=== PATIENT | male | born 1945 | race Caucasian/White ===

== ENCOUNTER 2022-11-02 16:10 | Inpatient (IN) | payer BC ==
[~2022-11-02] VITALS: Ht 180.3 cm; Wt 87.1 kg
--- NOTE | 2022-11-02 16:38 | NUR ---
ESTABLISHED IV ON LEFT AC 18G.
--- NOTE | 2022-11-02 16:39 | NUR ---
BLOOD DRAWN, SWAB FOR COVID19 AND RAPID INFLUENZA SENT TO LAB
[2022-11-02 16:51] LABS: BASOPHILS % (AUTO) 0.1 % (0.0-2.0); EOSINOPHILS % (AUTO) 0.5 % (0.0-6.0); HEMATOCRIT 33 % (39-51); HEMOGLOBIN 9.5 g/dL (13.5-17.5); LYMPHOCYTES # (AUTO) 0.7 K/uL (0.8-4.8); LYMPHOCYTES % (AUTO) 5.5 % (20.0-44.0); MEAN CORPUSCULAR HGB CONC 29 g/dl (31.0-36.0); MEAN CORPUSCULAR VOLUME 63 fL (80-96); MONOCYTES # (AUTO) 1.4 K/uL (0.1-1.30); MONOCYTES % (AUTO) 10.8 % (2.0-12.0); NEUTROPHILS # (AUTO) 10.9 K/uL (1.8-8.9); NEUTROPHILS % (AUTO) 83.1 % (43.0-81.0); PLATELET COUNT (AUTO) 342 K/uL (150-450); RED BLOOD CELL COUNT(AUTO) 5.26 MIL/uL (4.5-6.0); WHITE BLOOD COUNT (AUTO) 13.2 K/uL (4.3-11.0)
[2022-11-02 17:21] LABS: ALANINE AMINOTRANSFERASE 32 U/L (12-78); ALKALINE PHOSPHATASE 110 U/L (46-116); ASPARTATE AMINOTRANSFERASE 18 U/L (15-37); BILIRUBIN,DIRECT 0.1 mg/dL (0.0-0.2); BILIRUBIN,TOTAL 0.4 mg/dL (0.2-1.0); CALCIUM, SERUM 8.3 mg/dL (8.5-10.1); CARBON DIOXIDE 32 mmol/L (21-32); CHLORIDE 104 mmol/L (98-107); CREATININE 0.7 mg/dL (0.6-1.3); GLUCOSE 139 mg/dL (74-106); POTASSIUM 4.6 mmol/L (3.5-5.1); SODIUM SERUM 142 mmol/L (136-145); TOTAL PROTEIN, SERUM 7.5 g/dL (6.4-8.2); UREA NITROGEN, BLOOD 25 mg/dL (7-18)
[2022-11-02] MEDS ORDERED: FUROSEMIDE 40 MG/4 ML VIAL IV ONE (18:00)
[2022-11-02] MEDS ORDERED: ALBU6.7H9 IH (18:19)
[2022-11-02] MEDS ORDERED: FURO40TA5 PO ×2 (18:19→19:46)
[2022-11-02] MEDS ORDERED: LISI20TA30 PO (18:19)
[2022-11-02] MEDS ORDERED: ATOR40TA PO (18:19)
[2022-11-02] MEDS ORDERED: AMLO-212 PO (18:19)
[2022-11-02] MEDS ORDERED: CIPR5DRO18 LEFTEYE (18:19)
[2022-11-02] MEDS ORDERED: ASPI-1420 PO (18:19)
[2022-11-02] MEDS ORDERED: CLOP75TA15 PO (18:19)
[2022-11-02] MEDS ORDERED: TAMS-12 PO (18:19)
--- NOTE | 2022-11-02 19:07 | NUR ---
[facility] CALLED CUSTOMER ORDER CLERK PAGED.
[2022-11-02 20:19] LABS: LYMPHOCYTES % (MANUAL) 6 % (16-48); MONOCYTES % (MANUAL) 9 % (0-11.0); NEUTROPHILS % (MANUAL) 85 (42-76)
--- NOTE | 2022-11-02 21:10 | NUR ---
REPORT GIVEN TO BENY RN ROOM 109 FOR MONTY
[2022-11-02] MEDS ORDERED: ALBUTEROL FS 2.5 MG/3 ML VIAL.NEB IH PRN (22:00)
[2022-11-02] MEDS ORDERED: ENOXAPARIN SODIUM 40 MG/0.4 ML DISP.SYRIN SQ SCH (22:00)
--- NOTE | 2022-11-02 22:00 | NUR ---
petroleum refinery laborer notes Received Pt from ER nurse RAYMOND Wilburn. Pt arrived at the unit with a gurney and ACLS protocol. Pt is alert and orientedX3 and looks lethargic. On 15 L nonrebreather with O2 sat is 94%. No SOB. No S/S of distress noted. IV site at LAC# 18 is clean, intact and flushes well. Tele monitor showed SR. Pt's belonging was checked with RN and INVESTMENT BROKERSatish Maddox. Pt refuses to have wallet check. Explained risks and benefits. Skin assesment is done and performed. Skin issues pictures taken. Reorient Pt to the room and the use of call light. Pt verbalize understanding. Safety precautions is maintianed. Bed at low position, brakes locked, side rails upX3, hob elevated, bed alarm is on and call light is within reach. Will continue to monitor.
[2022-11-02 22:10] VITALS: BP 155/94
[2022-11-02] MEDS ORDERED: CEFTRIAXONE 1 G VIAL ONE (22:14)
[2022-11-02] MEDS: CIPROFLOXACIN HCL 0.3% 5 ML BOTTLE LEFTEYE SCH (22:26)
--- NOTE | 2022-11-02 22:27 | NUR ---
RN notes Unable to administered ciproflaxacin eyedrop. meds is not available in the unit. charge nurse is aware and informed.
[2022-11-02] MEDS: CEFTRIAXONE 1 G in IV D5W 50 ML IV SCH (22:33)
[2022-11-02] MEDS: TAMSULOSIN 0.4 MG CAP.SR.24H PO SCH (22:35)
[2022-11-02] MEDS: ATORVASTATIN 40 MG TABLET PO SCH (22:35)
[2022-11-03] VITALS (22 sets, daily range): BP systolic 82–144; BP diastolic 50–90
--- NOTE | 2022-11-03 00:45 | NUR ---
RN notes Dr. Agarwal at the bedside. MD ordered lasix 40 mg/iv/one time. Order carry out.
[2022-11-03] MEDS ORDERED: FUROSEMIDE 40 MG/4 ML VIAL IV ONE (01:00)
--- NOTE | 2022-11-03 02:30 | NUR ---
RN notes Dr. Agarwal at the bedside. ordered for noble cath and ABG stat. Order carry out.
[2022-11-03 03:10] LABS: ABG BASE EXCESS 5.6 mmol/L; ABG OXYGEN SATURATION 90.9 % (92.0-98.5); ABG PCO2 89.7 mmHg (35.0-45.0); AaDO2 552.3 mmHg; MetHb 0.2 % (0.0-1.5); O2Hb 89.8 % (94.0-97.0); SITE, ABG Left Radial; VENT MODE, BG NON REBREATHER
[2022-11-03] MEDS: FUROSEMIDE 40 MG/4 ML VIAL IV SCH ×4 (03:15→17:30)
--- NOTE | 2022-11-03 03:21 | NUR ---
RN notes Informed and notify Dr. Agarwal regarding pt's ABG. MD ordered for Bipap and transfer Pt to ICU. Order carry out. Charge nurse is aware and informed.
--- NOTE | 2022-11-03 03:34 | NUR ---
RN notes Called and spoke with Dr. Agarwal regarding lasix due at 0300. MD ordered not to give lasix at the time. Patient just received lasix at 0100. Charge nurse is aware and informed.
--- NOTE | 2022-11-03 03:36 | NUR ---
RN notes Transferred Pt to room 255 per MD ordered.
--- NOTE | 2022-11-03 03:40 | NUR ---
RN closing notes Transferred Pt with ACLS protocol to room 255. Report given to RAYMOND Pugh.
--- NOTE | 2022-11-03 04:00 | NUR ---
Received patient transferred in from [facility] via bed per [facility] protocol.Patient lethargic oriented x1. Bipap applied by Tristen,RT settings 20/5,Rate 16,FIO2 60% saturation 90%-95%.No acute distress noted.Dx:CHF Exacerbation,Respiratory Failure.SR.Afebrile.Saline to LAC intact.FC to gravity with clear yellow urine.AM care done.Turned and repositioned.Safety measures implemented.Continue monitoring.
[2022-11-03 05:33] LABS: BASOPHILS % (AUTO) 0.3 % (0.0-2.0); EOSINOPHILS % (AUTO) 0.1 % (0.0-6.0); HEMATOCRIT 36 % (39-51); HEMOGLOBIN 10.1 g/dL (13.5-17.5); LYMPHOCYTES # (AUTO) 0.4 K/uL (0.8-4.8); LYMPHOCYTES % (AUTO) 2.8 % (20.0-44.0); MEAN CORPUSCULAR HGB CONC 28 g/dl (31.0-36.0); MEAN CORPUSCULAR VOLUME 63 fL (80-96); MONOCYTES # (AUTO) 1.1 K/uL (0.1-1.30); MONOCYTES % (AUTO) 7.2 % (2.0-12.0); NEUTROPHILS % (AUTO) 89.6 % (43.0-81.0); PLATELET COUNT (AUTO) 344 K/uL (150-450); RED BLOOD CELL COUNT(AUTO) 5.66 MIL/uL (4.5-6.0); WHITE BLOOD COUNT (AUTO) 15.6 K/uL (4.3-11.0)
[2022-11-03 05:40] LABS: ABG BASE EXCESS 9.6 mmol/L; ABG OXYGEN SATURATION 93.9 % (92.0-98.5); ABG PCO2 73.4 mmHg (35.0-45.0); ABG PH 7.331 (7.350-7.450); ABG PO2 74.9 mmHg (75.0-100.0); AaDO2 272.2 mmHg; COHb 1.2 % (0.5-1.5); MetHb 0.2 % (0.0-1.5); O2Hb 92.6 % (94.0-97.0); SITE, ABG Left Radial; VENT MODE, BG ST 20/5 20 60%
[2022-11-03 05:51] LABS: ALBUMIN 2.7 g/dL (3.4-5.0); BILIRUBIN,TOTAL 0.4 mg/dL (0.2-1.0); CALCIUM, SERUM 8.1 mg/dL (8.5-10.1); CREATININE 0.8 mg/dL (0.6-1.3); MAGNESIUM 2.1 mg/dL (1.8-2.4); PHOSPHORUS 4.6 mg/dL (2.5-4.9); POTASSIUM 4.5 mmol/L (3.5-5.1); THYROID STIMULATING HORMONE 0.45 uIU/mL (0.358-3.74); TOTAL PROTEIN, SERUM 7.1 g/dL (6.4-8.2)
[2022-11-03 06:15] LABS: BILIRUBIN,URINE NEGATIVE (NEGATIVE); COLOR,URINE YELLOW (YELLOW); LEUKOCYTE ESTERASE ,URINE NEGATIVE (NEGATIVE); NITRITE, URINE NEGATIVE (NEGATIVE); PROTEIN,URINE NEGATIVE (NEGATIVE); UGLUCOSE NEGATIVE (NEGATIVE); UROBILINOGEN,URINE 0.2 EU/dL (0.2)
[2022-11-03 06:16] LABS: BACTERIA,URINE None seen /HPF (None Seen); RBC,URINE 0-2 /HPF (0-2); SQUAMOUS EPITHELIAL CELL,UR Rare /HPF (None Seen); WBC,URINE 0-2 /HPF (0-3)
--- NOTE | 2022-11-03 06:30 | NUR ---
Patient resting.VSS.Remains on BIPAP.ABG'S this morning 0500 called to Alvin Agarwal NP with orders and carried out.Increased Rate to 18 done by RT Tristen.No acute distress noted.Kept comfortable.
--- NOTE | 2022-11-03 07:22 | NUR ---
WOUND CARE CONSULT: PT SEEN FOR SKIN ASSESSMENT AND NOTED TO HAVE DRY SCABS TO LEFT SIDE OF NECK AND SACRAL/LEFT BUTTOCK REDNESS WHICH IS BLANCHABLE. RECOMMENDATIONS MADE FOR SKIN PROTECTION. DISCUSSED WITH NURSING STAFF. MD IN AGREEMENT WITH PLAN OF CARE. SILVERMAN CATH NOTED.
[2022-11-03] MEDS ORDERED: Z GUARD REMEDY 4 OZ OINT TP PRN (07:30)
--- NOTE | 2022-11-03 08:39 | NUR ---
RN NOTE PER DR BLACKWOOD. PT WILL BE NPO DUE TO TAP TOMORROW. ALL PO MEDICATIONS HELD.
[2022-11-03] MEDS: ASPIRIN EC 81 MG TABLET.DR PO SCH (08:41)
[2022-11-03] MEDS: AMLODIPINE BESYLATE 5 MG TABLET PO SCH (08:41)
[2022-11-03] MEDS: LISINOPRIL (20MG) 20 MG TABLET PO SCH ×2 (08:42→17:00)
[2022-11-03] MEDS: CLOPIDOGREL BISULFATE 75 MG TABLET PO SCH (08:42)
[2022-11-03] MEDS: CIPROFLOXACIN HCL 0.3% 5 ML BOTTLE LEFTEYE SCH (08:49)
[2022-11-03] MEDS ORDERED: FUROSEMIDE 40 MG TABLET PO SCH (09:00)
[2022-11-03] MEDS ORDERED: FUROSEMIDE 40 MG/4 ML VIAL IV SCH (09:00)
[2022-11-03] MEDS: IPRATROPIUM NEB FS 0.5 MG/2.5 ML AMPUL.NEB NEB SCH ×3 (10:00→20:34)
[2022-11-03] MEDS: ALBUTEROL FS 2.5 MG/3 ML VIAL.NEB IH SCH ×3 (10:00→20:34)
[2022-11-03 10:40] LABS: IRON, SERUM 14 ug/dl (50-175); TOTAL IRON BINDING CAPACITY 253 ug/dl (250-450)
--- NOTE | 2022-11-03 11:07 | NUR ---
RN NOTE PATIENT SIGNED CONSENT FOR ULTRASOUND GUIDED THORACENTESIS OF THE RIGHT LUNG, PLACED IN CHART.
[2022-11-03 11:14] LABS: FERRITIN 14 ng/mL (8-388)
[2022-11-03] MEDS: methylPREDNISolone SOD SUCC 125 MG/2ML VIAL IV SCH ×3 (12:42→21:24)
--- NOTE | 2022-11-03 17:23 | NUR ---
RT PATIENT REMAINS ON BIPAP WITH ORDERED SETTINGS. PATIENT AWAKE, RESPONSIVE, NO DISTRESS ON BIPAP. WHEN BIPAP REMOVED PATIENT DECOMPENSATES RAPIDLY AND BECOMES SOB. AMBU BAG AT HOB
[2022-11-03] MEDS: OFLOXACIN 0.3% OPHTH 5 ML BOTTLE LEFTEYE SCH ×2 (17:30→21:23)
--- NOTE | 2022-11-03 19:15 | NUR ---
RN OPENING NOTES RECEIVED PATIENT ON BED, AWAKE, ALERT/ORIENTED 3, ON BIPAP WITH SETTINS 20/50 AC- 18, FIO2- 60% SATING AT 95%, RESPIRATORY EVEN AND UNLABORED, AFEBRILE, NO S/S OF DISTRESS NOTED. NOTED WITH LAC #18 PERIPHERAL LINE. FLUSHED WITH NS. SILVERMAN CATHETER PATENT INTACT DRAINING WITH CLEAR YELLOW URINE VIA GRAVITY. ALL SAFETY PRECAUTION PROVIDED. BED IN LOWEST POSITION, LOCKED. CALL LIGHT WITH IN REACH.
--- NOTE | 2022-11-03 20:34 | NUR ---
RCVD PT ON BIPAP 20/5, RR 18, FIO2 60%. Q6 BREATHING TX GIVEN, NO ADVERSE REACTION NOTED. WILL CONTINUE TO MONITOR T/O SHIFT.
[2022-11-03] MEDS: CEFTRIAXONE 1 G in IV D5W 50 ML IV SCH (22:55)
[2022-11-03] MEDS: ATORVASTATIN 40 MG TABLET PO SCH (22:55)
[2022-11-03] MEDS: TAMSULOSIN 0.4 MG CAP.SR.24H PO SCH (22:55)
[2022-11-04] VITALS (24 sets, daily range): BP systolic 85–138; BP diastolic 58–82
[2022-11-04] MEDS: IPRATROPIUM NEB FS 0.5 MG/2.5 ML AMPUL.NEB NEB SCH ×4 (01:31→19:50)
[2022-11-04] MEDS: ALBUTEROL FS 2.5 MG/3 ML VIAL.NEB IH SCH ×4 (01:32→19:50)
[2022-11-04] MEDS: methylPREDNISolone SOD SUCC 125 MG/2ML VIAL IV SCH ×3 (04:33→20:59)
[2022-11-04 04:59] LABS: BAND % (MANUAL) 1 % (0.0-5.0); BASOPHILS % (MANUAL) 0 % (0.0-2.0); EOSINOPHILS % (MANUAL) 1 % (0-4); LYMPHOCYTES % (MANUAL) 6 % (16-48); MONOCYTES % (MANUAL) 10 % (0-11.0); NEUTROPHILS % (MANUAL) 82 (42-76)
--- NOTE | 2022-11-04 07:10 | NUR ---
TRAIN OPERATIONS MANAGER NOTE RECEIVED PATIENT IN BED RESTING ALERT ORIENTED X3 VERBALLY RESPONSIVE,ON BIPAP PRESCRIBED O2:90% IV SITE IS ON RAC INTACT PATENT,SILVERMAN CATH IN PLACE URINE DRAINING YELLOW BY GRAVITY SAFETY MEASURE IMPLEMENT BED IN LOW POSITION AND LOCKED,CALL LIGHT WITHIN REACH,HEAD OF BED ELEVATED CONTINUE TO MONITOR.
[2022-11-04 08:15] LABS: ABG BASE EXCESS 12.6 mmol/L; ABG OXYGEN SATURATION 93.4 % (92.0-98.5); ABG PH 7.466 (7.350-7.450); ABG PO2 67.6 mmHg (75.0-100.0); AaDO2 300.8 mmHg; COHb 1.1 % (0.5-1.5); MetHb 0.1 % (0.0-1.5); O2Hb 92.3 % (94.0-97.0); SITE, ABG Right Radial; VENT MODE, BG BIPAP 20/5 R18 60%
[2022-11-04 08:41] LABS: BASOPHILS # (AUTO) 0.3 K/uL (0.0-0.2); BASOPHILS % (AUTO) 1.6 % (0.0-2.0); EOSINOPHILS % (AUTO) 0.1 % (0.0-6.0); HEMATOCRIT 34 % (39-51); HEMOGLOBIN 9.6 g/dL (13.5-17.5); LYMPHOCYTES # (AUTO) 0.3 K/uL (0.8-4.8); LYMPHOCYTES % (AUTO) 1.6 % (20.0-44.0); MEAN CORPUSCULAR HGB CONC 29 g/dl (31.0-36.0); MEAN CORPUSCULAR VOLUME 62 fL (80-96); MONOCYTES # (AUTO) 0.6 K/uL (0.1-1.30); MONOCYTES % (AUTO) 2.9 % (2.0-12.0); NEUTROPHILS # (AUTO) 18.5 K/uL (1.8-8.9); NEUTROPHILS % (AUTO) 93.8 % (43.0-81.0); PLATELET COUNT (AUTO) 338 K/uL (150-450); RED BLOOD CELL COUNT(AUTO) 5.38 MIL/uL (4.5-6.0); WHITE BLOOD COUNT (AUTO) 19.8 K/uL (4.3-11.0)
[2022-11-04] MEDS: CLOPIDOGREL BISULFATE 75 MG TABLET PO SCH (09:00)
[2022-11-04] MEDS: ASPIRIN EC 81 MG TABLET.DR PO SCH (09:00)
[2022-11-04] MEDS: LISINOPRIL (20MG) 20 MG TABLET PO SCH ×2 (09:00→16:19)
--- NOTE | 2022-11-04 09:00 | NUR ---
RN NOTE CHANGE BIPAP TO SIMPLE MASK ON 10L OXYGEN MD ORDERED,CONTINUE TO MONITOR.
[2022-11-04] MEDS: FUROSEMIDE 40 MG/4 ML VIAL IV SCH ×3 (09:10→16:19)
[2022-11-04] MEDS: AMLODIPINE BESYLATE 5 MG TABLET PO SCH (09:11)
[2022-11-04] MEDS: OFLOXACIN 0.3% OPHTH 5 ML BOTTLE LEFTEYE SCH ×4 (09:12→21:01)
[2022-11-04 10:05] LABS: ALBUMIN 2.4 g/dL (3.4-5.0); BILIRUBIN,TOTAL 0.3 mg/dL (0.2-1.0); CALCIUM, SERUM 8.4 mg/dL (8.5-10.1); CREATININE 0.9 mg/dL (0.6-1.3); TOTAL PROTEIN, SERUM 6.8 g/dL (6.4-8.2)
[2022-11-04 10:17] LABS: ABG BASE EXCESS 6.6 mmol/L; ABG OXYGEN SATURATION 89.9 % (92.0-98.5); ABG PCO2 77.4 mmHg (35.0-45.0); ABG PH 7.281 (7.350-7.450); ABG PO2 70.5 mmHg (75.0-100.0); AaDO2 272.2 mmHg; MetHb 0.4 % (0.0-1.5); O2Hb 88.6 % (94.0-97.0); SITE, ABG Left Radial; VENT MODE, BG SIMPLE MASK
--- NOTE | 2022-11-04 10:30 | NUR ---
RN NOTE PATIENT FORM SIMPLE MASK 10L CHANGE TO BIPAP CONTINUE TO MONITOR.
[2022-11-04] MEDS: ENOXAPARIN SODIUM 40 MG/0.4 ML DISP.SYRIN SQ SCH (13:15)
[2022-11-04] MEDS: SOD FERRIC GLUC 125 MG in IV NS 0.9% 100 ML IV SCH (14:59)
--- NOTE | 2022-11-04 19:09 | NUR ---
RN NOTE PATIENT REMAINS ALERT ORIENTED X3 VERBALLY RESPONSIVE ON BIPAP MD ORDERED,NO SOB NOT ACUTE DISTRESS NOTED IV SITE IS ON LEFT AC INTACT PATENT,SILVERMAN CATH IN PLACE KEPT CLEAN AND DRY ALL THE TIME,TURNED AND REPOSITIONED EVERY 2 HOURS,HEAD OF THE BED ELEVATED ALL THE TIME,BED IN LOW POSITION AND LOCKED,CALL LIGHT WITHIN REACH,ENDORSE NEXT COMING SHIFT FOR CONTINUATION OF CARE.
--- NOTE | 2022-11-04 19:28 | NUR ---
RN OPENING NOTE PT A&OX4. RESPIRATIONS EVEN AND UNLABORED ON BIPAP WITH O2 SAT OF 94%. SKIN IS WARM AND DRY. IV INTACT LAC 18G. SR ON MONITOR. OTHER VS ARE STABLE. NO ACUTE SIGNS OF DISTRESS. BED LOCKED AND AT LOWEST LEVEL WITH HOB ELEVATED. 2 RAILS UP AND CALL LIGHT WITHIN REACH.
--- NOTE | 2022-11-04 20:42 | NUR ---
RECEIVED PT ON BIPAP. PT IS AWAKE AND TOLERATING SETTINGS. CONTINUE TO MONITOR. Addendum: 11/04/22 at 3 by ROYAL TOLBERT RT Amended: Links added.
[2022-11-04] MEDS: CEFTRIAXONE 1 G in IV D5W 50 ML IV SCH (21:00)
[2022-11-04] MEDS: ATORVASTATIN 40 MG TABLET PO SCH (21:00)
[2022-11-04] MEDS: TAMSULOSIN 0.4 MG CAP.SR.24H PO SCH (21:00)
[2022-11-05] VITALS (24 sets, daily range): BP systolic 104–141; BP diastolic 61–97
[2022-11-05] MEDS: IPRATROPIUM NEB FS 0.5 MG/2.5 ML AMPUL.NEB NEB SCH ×4 (01:18→19:33)
[2022-11-05] MEDS: ALBUTEROL FS 2.5 MG/3 ML VIAL.NEB IH SCH ×4 (01:18→19:33)
[2022-11-05 03:48] LABS: BASOPHILS # (AUTO) 0.1 K/uL (0.0-0.2); BASOPHILS % (AUTO) 0.6 % (0.0-2.0); HEMATOCRIT 32 % (39-51); HEMOGLOBIN 9.3 g/dL (13.5-17.5); LYMPHOCYTES # (AUTO) 0.3 K/uL (0.8-4.8); LYMPHOCYTES % (AUTO) 1.7 % (20.0-44.0); MEAN CORPUSCULAR HGB CONC 29 g/dl (31.0-36.0); MEAN CORPUSCULAR VOLUME 62 fL (80-96); MONOCYTES # (AUTO) 0.8 K/uL (0.1-1.30); MONOCYTES % (AUTO) 4.4 % (2.0-12.0); NEUTROPHILS # (AUTO) 17.7 K/uL (1.8-8.9); NEUTROPHILS % (AUTO) 93.3 % (43.0-81.0); PLATELET COUNT (AUTO) 324 K/uL (150-450); RED BLOOD CELL COUNT(AUTO) 5.22 MIL/uL (4.5-6.0)
[2022-11-05] MEDS: methylPREDNISolone SOD SUCC 125 MG/2ML VIAL IV SCH ×3 (04:15→21:46)
[2022-11-05 04:16] LABS: CALCIUM, SERUM 8.1 mg/dL (8.5-10.1); CREATININE 0.8 mg/dL (0.6-1.3); POTASSIUM 3.7 mmol/L (3.5-5.1)
[2022-11-05 04:22] LABS: ALBUMIN 2.4 g/dL (3.4-5.0); BILIRUBIN,TOTAL 0.4 mg/dL (0.2-1.0); TOTAL PROTEIN, SERUM 6.7 g/dL (6.4-8.2)
[2022-11-05 05:18] LABS: EOSINOPHILS % (MANUAL) 0 % (0-4); LYMPHOCYTES % (MANUAL) 1 % (16-48); MONOCYTES % (MANUAL) 4 % (0-11.0); NEUTROPHILS % (MANUAL) 95 (42-76)
[2022-11-05 06:01] LABS: ABG BASE EXCESS 11.8 mmol/L; ABG PCO2 53.4 mmHg (35.0-45.0); ABG PH 7.462 (7.350-7.450); AaDO2 440.3 mmHg; COHb 0.6 % (0.5-1.5); MetHb 0.1 % (0.0-1.5); O2Hb 93.3 % (94.0-97.0); SITE, ABG Right Radial
--- NOTE | 2022-11-05 06:55 | NUR ---
RN CLOSING NOTE PT A&OX4. PT ON BIPAP AND WAS INFORMED BY RT THAT THEY HAVE INCREASED FiO2 FROM 60% TO 80% DUE TO O2 SAT OF 89%. PT'S RESPIRATIONS ARE EVEN AND UNLABORED AND TOLERATING BIPAP WELL. DENIES CHEST PAIN OR DYSPNEA. SKIN IS WARM AND DRY. SPEECH CLEAR. LAC 18 G INTACT AND FLUSHED. SKIN IS WARM AND DRY. EDUCATED PT ON IMPORTANCE OF FLUID RESTRICTION DUE TO CHF DX. PT VERBALIZED UNDERSTANDING. SKIN LOCKED AND AT LOWEST LEVEL WITH 2 RAILS UP. CALL LIGHT WITHIN REEACH.
[2022-11-05] MEDS ORDERED: AZITHROMYCIN 500 MG in IV D5W 250 ML IV SCH (07:00)
--- NOTE | 2022-11-05 07:44 | NUR ---
PT IN BED RESTING ABLE TO MAKE NEEDS KNOWN, VERBALIZED HUNGER AND WANTS TO EAT. CURRENTLY ON RESCUE BIPAP 80% FIO2. BP STABLE BEDSIDE MONITOR READING SR. OVER NIGHT EP. OF DESAT HAD TO INCREASE FI02. CHEST CT SCHEDULED WHEN PT IS STABLE. HOB ELEVATED TO SEMI FOWLERS CALL LIGHT WITHIN REACH.
[2022-11-05] MEDS: LISINOPRIL (20MG) 20 MG TABLET PO SCH ×2 (08:15→16:55)
[2022-11-05] MEDS: FUROSEMIDE 40 MG/4 ML VIAL IV SCH ×3 (08:15→16:55)
[2022-11-05] MEDS: AMLODIPINE BESYLATE 5 MG TABLET PO SCH (08:15)
[2022-11-05] MEDS: CLOPIDOGREL BISULFATE 75 MG TABLET PO SCH (08:16)
[2022-11-05] MEDS: ASPIRIN EC 81 MG TABLET.DR PO SCH (08:16)
[2022-11-05] MEDS: OFLOXACIN 0.3% OPHTH 5 ML BOTTLE LEFTEYE SCH ×4 (08:16→21:47)
[2022-11-05] MEDS: ENOXAPARIN SODIUM 40 MG/0.4 ML DISP.SYRIN SQ SCH (08:19)
[2022-11-05] MEDS: AZITHROMYCIN 500 MG in IV D5W 250 ML IV SCH (08:24)
[2022-11-05] MEDS: SOD FERRIC GLUC 125 MG in IV NS 0.9% 100 ML IV SCH (15:07)
[2022-11-05] MEDS: ENSURE ENLIVE CHOC 237 ML CAN PO SCH ×2 (15:30→17:00)
--- NOTE | 2022-11-05 20:17 | NUR ---
RECEIVED PT AWAKE ON BIPAP. PT TOLERATING SETTINGS. NO DISTRESS. CONTINUE TO MONITOR. Addendum: 11/05/22 at 2018 by ROYAL TOLBERT RT Amended: Links added.
--- NOTE | 2022-11-05 20:25 | NUR ---
PRINTED CIRCUIT BOARD PANELS PLATER OPENING NOTE PT RECEIVED IN BED, AWAKE, A&O X3, CALM, COOPERATIVE. PT ON BIPAP WITH SETTINGS OF 20/5, RATE AT 18 AND FIO2 AT 80% WITH CURRENT O2SAT OF 92%; NO S/S OF RESP DISTRESS, NO COUGH, NON-LABORED AND EQUAL BREATHING; GETS SOB WITH EXERTION. PT ATTACHED TO BEDSIDE MONITOR, SR WITH HR OF 82. IV ACCESS ON RIGHT WRIST 18G NS TKO INFUSING. SILVERMAN INTACT AND PATENT DRAINING CLEAR AND YELLOW URINE. BED IN LOWEST POSITION, CALL LIGHT WITHIN REACH, SIDE RAILS UP X3. WILL CONTINUE TO MONITOR THROUGHOUT THE NIGHT.
[2022-11-05] MEDS: CEFTRIAXONE 1 G in IV D5W 50 ML IV SCH (21:45)
[2022-11-05] MEDS: TAMSULOSIN 0.4 MG CAP.SR.24H PO SCH (21:46)
[2022-11-05] MEDS: ATORVASTATIN 40 MG TABLET PO SCH (21:46)
[2022-11-06] VITALS (32 sets, daily range): BP systolic 68–151; BP diastolic 21–84
[2022-11-06] MEDS: ALBUTEROL FS 2.5 MG/3 ML VIAL.NEB IH SCH ×4 (01:10→19:28)
[2022-11-06] MEDS: IPRATROPIUM NEB FS 0.5 MG/2.5 ML AMPUL.NEB NEB SCH ×4 (01:10→19:28)
[2022-11-06] MEDS: methylPREDNISolone SOD SUCC 125 MG/2ML VIAL IV SCH ×3 (05:17→21:45)
[2022-11-06 05:22] LABS: ALBUMIN 2.4 g/dL (3.4-5.0); BILIRUBIN,TOTAL 0.4 mg/dL (0.2-1.0); CALCIUM, SERUM 8.2 mg/dL (8.5-10.1); CREATININE 0.9 mg/dL (0.6-1.3); POTASSIUM 3.5 mmol/L (3.5-5.1); TOTAL PROTEIN, SERUM 6.7 g/dL (6.4-8.2)
[2022-11-06 05:35] LABS: BASOPHILS % (AUTO) 0.1 % (0.0-2.0); HEMATOCRIT 34 % (39-51); HEMOGLOBIN 9.6 g/dL (13.5-17.5); LYMPHOCYTES # (AUTO) 0.2 K/uL (0.8-4.8); LYMPHOCYTES % (AUTO) 1.2 % (20.0-44.0); MEAN CORPUSCULAR HGB CONC 29 g/dl (31.0-36.0); MEAN CORPUSCULAR VOLUME 62 fL (80-96); NEUTROPHILS # (AUTO) 18.4 K/uL (1.8-8.9); NEUTROPHILS % (AUTO) 93.7 % (43.0-81.0); PLATELET COUNT (AUTO) 314 K/uL (150-450); WHITE BLOOD COUNT (AUTO) 19.6 K/uL (4.3-11.0)
--- NOTE | 2022-11-06 07:07 | NUR ---
OYSTER WASHER CLOSING NOTE PT REMAINS IN BED, AWAKE, A&O X3, CALM, COOPERATIVE. CONTINUES TO BE ON BIPAP WITH SAME SETTINGS; PT TOLERATED BIPAP SETTINGS THROUGHOUT THE NIGHT WITH O2SAT RANGING FROM 89%-97% NO S/S OF RESP DISTRESS, NO COUGH, NON-LABORED AND EQUAL BREATHING; CONTINUES TO HAVE SOB WITH EXERTION AND ACTIVITY. ATTACHED TO BEDSIDE MONITOR, SR WITH HR OF 82. IV ACCESS ON RIGHT WRIST 18G INTACT AND PATENT, FLUSHES EASILY WITH NO RESISTANCE. SILVERMAN INTACT AND PATENT DRAINING CLEAR AND YELLOW URINE. ALL DUE MEDS ADMINISTERED DURING THE NIGHT. BED IN LOWEST POSITION, CALL LIGHT WITHIN REACH, SIDE RAILS UP X3. WILL ENDORSE TO DAYSHIFT NURSE TO CONTINUE CARE.
[2022-11-06] MEDS: ENSURE ENLIVE CHOC 237 ML CAN PO SCH ×2 (08:00→17:00)
[2022-11-06] MEDS: AZITHROMYCIN 500 MG in IV D5W 250 ML IV SCH (08:30)
[2022-11-06] MEDS: FUROSEMIDE 40 MG/4 ML VIAL IV SCH ×3 (10:07→18:57)
[2022-11-06] MEDS: AMLODIPINE BESYLATE 5 MG TABLET PO SCH (10:08)
[2022-11-06] MEDS: ASPIRIN EC 81 MG TABLET.DR PO SCH (10:08)
[2022-11-06] MEDS: CLOPIDOGREL BISULFATE 75 MG TABLET PO SCH (10:08)
[2022-11-06] MEDS: LISINOPRIL (20MG) 20 MG TABLET PO SCH ×2 (10:18→18:32)
[2022-11-06] MEDS: ENOXAPARIN SODIUM 40 MG/0.4 ML DISP.SYRIN SQ SCH (10:19)
[2022-11-06 10:37] LABS: ABG BASE EXCESS 10.1 mmol/L; ABG OXYGEN SATURATION 91.5 % (92.0-98.5); ABG PCO2 54.9 mmHg (35.0-45.0); ABG PH 7.434 (7.350-7.450); AaDO2 592.1 mmHg; COHb 0.6 % (0.5-1.5); MetHb 0.2 % (0.0-1.5); O2Hb 90.8 % (94.0-97.0); SITE, ABG Left Radial; VENT MODE, BG 15 LPM NRB
[2022-11-06] MEDS: OFLOXACIN 0.3% OPHTH 5 ML BOTTLE LEFTEYE SCH ×4 (11:10→21:45)
--- NOTE | 2022-11-06 11:13 | NUR ---
PT PLACED OFF BIPAP ONTO NRB MASK. ABG DONE DR. JAISON HIDALGO. ZERO CHANGES AT THIS TIME.
[2022-11-06 13:45] LABS: LYMPHOCYTES % (MANUAL) 3 % (16-48); METAMYELOCYTES % 1 % (0-0); MONOCYTES % (MANUAL) 4 % (0-11.0); NEUTROPHILS % (MANUAL) 92 (42-76)
[2022-11-06] MEDS: SOD FERRIC GLUC 125 MG in IV NS 0.9% 100 ML IV SCH (14:31)
--- NOTE | 2022-11-06 19:15 | NUR ---
RT NOTE PT NONCOMPLIANT AND REMOVING NONREBREATHER MASK. PT PLACED ON BIPAP WITH CURRENT SETTINGS OF 20/5, 18, 100%. PT REFUSING EVERYTHING. WILL CONTINUE TO MONITOR.
[2022-11-06 19:16] LABS: ABG BASE EXCESS 3.8 mmol/L; ABG PCO2 86.7 mmHg (35.0-45.0); ABG PH 7.213 (7.350-7.450); ABG PO2 81.4 mmHg (75.0-100.0); AaDO2 544.9 mmHg; COHb 0.8 % (0.5-1.5); MetHb 0.2 % (0.0-1.5); O2Hb 91.1 % (94.0-97.0); SITE, ABG Right Radial
--- NOTE | 2022-11-06 19:30 | NUR ---
RT NOTE PT NOTED WITH PRESSURE SORES ON NOSE. MEPILEX IN PLACE WHEN PLACING BIPAP ON. MASK SECURED.
--- NOTE | 2022-11-06 19:37 | NUR ---
RT NOTE NEW SETTINGS ORDERED FROM DR BLACKWOOD. 31/03, 18, 100%. RN CHARLES AWARE. WILL CONTINUE TO MONITOR.
--- NOTE | 2022-11-06 19:48 | NUR ---
RN NOTE PT NOTED NON COMPLIANT WITH NON REBREATHER AND ACTING AGITATED, VERBALIZED HE WANTED TO GO HOME. PT REDIRECTED BUT STILL NON COMPLIANT. WILL INFORM PMD AND ENDORSE TO NEXT SHIFT RN FOR RESTRAINTS ORDER. PT WITH O2 SAT 88-91 WITH NON REBREATHER. PT WAS CHANGED TO BIPAP BY RT. WILL CONTINUE TO MONITOR.
[2022-11-06] MEDS ORDERED: NOREPINEPHRINE 4 MG/4 ML AMPUL IV ONE ×2 (20:14→20:18)
[2022-11-06] MEDS ORDERED: NOREPINEPHRINE 32 MG in IV NS 0.9% 218 ML IV PRN (20:30)
[2022-11-06 20:34] LABS: ABG BASE EXCESS 5.4 mmol/L; ABG PCO2 61.7 mmHg (35.0-45.0); ABG PH 7.342 (7.350-7.450); ABG PO2 79.5 mmHg (75.0-100.0); AaDO2 571.8 mmHg; COHb 0.8 % (0.5-1.5); MetHb 0.1 % (0.0-1.5); O2Hb 93.2 % (94.0-97.0); SITE, ABG Left Radial
--- NOTE | 2022-11-06 20:39 | NUR ---
RN NOTE INFORMED CHECK CASHIER JEFERSON LIGHT THAT PATIENT BP IS 68/57 HR 120. RECEIVED ORDER FOR LEVOPHED WITH GOAL SBP GREATER THAN 90. ORDER READ BACK NOTED AND CARRIED OUT.
[2022-11-06] MEDS: TAMSULOSIN 0.4 MG CAP.SR.24H PO SCH (21:45)
[2022-11-06] MEDS: CEFTRIAXONE 1 G in IV D5W 50 ML IV SCH (21:45)
[2022-11-06] MEDS: ATORVASTATIN 40 MG TABLET PO SCH (21:45)
[2022-11-07] VITALS (27 sets, daily range): BP systolic 80–145; BP diastolic 40–94
[2022-11-07] MEDS: ALBUTEROL FS 2.5 MG/3 ML VIAL.NEB IH SCH ×4 (01:45→20:14)
[2022-11-07] MEDS: IPRATROPIUM NEB FS 0.5 MG/2.5 ML AMPUL.NEB NEB SCH ×4 (01:45→20:14)
[2022-11-07] MEDS: methylPREDNISolone SOD SUCC 125 MG/2ML VIAL IV SCH ×3 (05:18→21:50)
--- NOTE | 2022-11-07 06:40 | NUR ---
RN CLOSING NOTE PATIENT WAS RESTLESS, AGITATED, AND ANXIOUS AT BEGINING OF SHIFT. BILATYERAL SOFT WRIST RESTRAINTS APPLIED. PATIENT IS NOW CALM AND COOPERATIVE, FOLLOWING COMMANDS. ON BIPAP THROUGHOUT SHIFT. NO C/O PAIN. SINUS TACHYCARDIA 150S WHEN AGITATED, NOW SR. SB ON THE MONITOR , LOW OF 58 WHEN SLEEPING. PATIENT A/OX3. SILVERMAN CATHET ER PRESENT, DRAININ TOP GRAVITY. BM X2, BROWN AND SOFT. IV ABX GIVEN ORDERED/ PAENDING CT CHEST WO CON. REPEAT CXR AND ABG THIS AM.
[2022-11-07] MEDS: ENSURE ENLIVE CHOC 237 ML CAN PO SCH ×2 (08:00→17:00)
--- NOTE | 2022-11-07 08:01 | NUR ---
RN NOTE PT RECEIVED IN BED, ON BIPAP WITH SETTINGS TOLERATED WELL SATING @98.NO AGITATION NOTED. IV ACCESS ON RAC G20 WITH NO FLUIDS. SAFETY MAINTAINED. 1:1 SITTER @BEDSIDE. WILL CONTINUE TO MONITOR.
[2022-11-07] MEDS: FUROSEMIDE 40 MG/4 ML VIAL IV SCH ×3 (08:12→17:14)
[2022-11-07] MEDS: AZITHROMYCIN 500 MG in IV D5W 250 ML IV SCH (08:13)
[2022-11-07] MEDS: OFLOXACIN 0.3% OPHTH 5 ML BOTTLE LEFTEYE SCH ×4 (08:13→21:49)
[2022-11-07] MEDS: ENOXAPARIN SODIUM 40 MG/0.4 ML DISP.SYRIN SQ SCH (08:14)
[2022-11-07] MEDS: ASPIRIN EC 81 MG TABLET.DR PO SCH (09:00)
[2022-11-07] MEDS: CLOPIDOGREL BISULFATE 75 MG TABLET PO SCH (09:00)
[2022-11-07] MEDS: AMLODIPINE BESYLATE 5 MG TABLET PO SCH (09:00)
[2022-11-07] MEDS: LISINOPRIL (20MG) 20 MG TABLET PO SCH ×2 (09:00→17:00)
[2022-11-07 09:30] LABS: ABG BASE EXCESS 8.3 mmol/L; ABG PCO2 42.3 mmHg (35.0-45.0); ABG PO2 74.4 mmHg (75.0-100.0); AaDO2 596.3 mmHg; COHb 0.8 % (0.5-1.5); MetHb 0.3 % (0.0-1.5); SITE, ABG Right Radial; VENT MODE, BG 25/5 R18 100%
--- NOTE | 2022-11-07 09:38 | NUR ---
zehra changed below per dr. nichols: ipap 22 epap 8 Addendum: 11/07/22 at 0939 by LAMONT JASSO RT Amended: Links added.
[2022-11-07 10:44] LABS: BASOPHILS % (AUTO) 0.3 % (0.0-2.0); HEMATOCRIT 36 % (39-51); HEMOGLOBIN 10.1 g/dL (13.5-17.5); LYMPHOCYTES # (AUTO) 0.3 K/uL (0.8-4.8); LYMPHOCYTES % (AUTO) 1.4 % (20.0-44.0); MEAN CORPUSCULAR HGB CONC 28 g/dl (31.0-36.0); MEAN CORPUSCULAR VOLUME 63 fL (80-96); MONOCYTES # (AUTO) 1.1 K/uL (0.1-1.30); MONOCYTES % (AUTO) 5.4 % (2.0-12.0); NEUTROPHILS % (AUTO) 92.9 % (43.0-81.0); PLATELET COUNT (AUTO) 338 K/uL (150-450); RED BLOOD CELL COUNT(AUTO) 5.66 MIL/uL (4.5-6.0); WHITE BLOOD COUNT (AUTO) 19.4 K/uL (4.3-11.0)
--- NOTE | 2022-11-07 10:46 | NUR ---
RN NOTE PT UNABLE TO TAKE PO MEDS DUE TO BIPAP AND QUICKLY DESATURATES WHEN OFF IT. PMD MADE AWARE.
[2022-11-07 11:32] LABS: ALBUMIN 2.6 g/dL (3.4-5.0); BILIRUBIN,TOTAL 0.8 mg/dL (0.2-1.0); CALCIUM, SERUM 8.4 mg/dL (8.5-10.1); CREATININE 1.1 mg/dL (0.6-1.3); POTASSIUM 3.4 mmol/L (3.5-5.1); TOTAL PROTEIN, SERUM 7.1 g/dL (6.4-8.2)
[2022-11-07] MEDS: SOD FERRIC GLUC 125 MG in IV NS 0.9% 100 ML IV SCH (15:37)
--- NOTE | 2022-11-07 15:58 | NUR ---
RN NOTE PT BELONGINGS (HOUSE KEYS) SENT HOME WITH GERALD JESSENIA SHANE. PT AWARE AND AGREED. PT NIECE SIGNED OUT ON BELONGINGS SHEET.
[2022-11-07] MEDS ORDERED: POTASSIUM CL. PREMIX PERIPHER. 50 ML IV SCH (18:00)
--- NOTE | 2022-11-07 18:56 | NUR ---
RN NOTE PT REMAINS ON CONT BIPAP, SETTINGS TOLERATED WELL. V/S WNL. GOOD URINE OUTPUT. DUE MEDS GIVEN. AM/PM CARE RENDERED. WILL CONTINUE TO MONITOR.
--- NOTE | 2022-11-07 20:00 | NUR ---
Received patient A/OX3.VS stable.SR.Patient on BIPAP 22/8,RATE 18,FIO2 100% 97% O2 sat 97%.No acute distress noted.Dx: CHF,Respiratory Failure.Maintain HOB elevated.IVF NS at TKO infusing to RAC site intact.FC to gravity.Turned and repositioned to comfort.Patient denies pain or any discomfort.Sitter at bedside.Call light within easy reach.Continue monitoring.
[2022-11-07] MEDS: CEFTRIAXONE 1 G in IV D5W 50 ML IV SCH (21:50)
[2022-11-07] MEDS: TAMSULOSIN 0.4 MG CAP.SR.24H PO SCH (21:50)
[2022-11-07] MEDS: ATORVASTATIN 40 MG TABLET PO SCH (21:51)
[2022-11-07] MEDS: IV NS 0.9% 250 ML IV PRN (22:56)
[2022-11-08] VITALS (24 sets, daily range): BP systolic 87–146; BP diastolic 57–106
[2022-11-08] MEDS: ALBUTEROL FS 2.5 MG/3 ML VIAL.NEB IH SCH ×4 (01:36→20:03)
[2022-11-08] MEDS: IPRATROPIUM NEB FS 0.5 MG/2.5 ML AMPUL.NEB NEB SCH ×4 (01:36→20:03)
[2022-11-08 04:40] LABS: BASOPHILS % (AUTO) 0.1 % (0.0-2.0); HEMATOCRIT 34 % (39-51); HEMOGLOBIN 9.7 g/dL (13.5-17.5); LYMPHOCYTES # (AUTO) 0.2 K/uL (0.8-4.8); LYMPHOCYTES % (AUTO) 0.8 % (20.0-44.0); MEAN CORPUSCULAR HGB CONC 29 g/dl (31.0-36.0); MEAN CORPUSCULAR VOLUME 63 fL (80-96); MONOCYTES # (AUTO) 0.9 K/uL (0.1-1.30); MONOCYTES % (AUTO) 5.1 % (2.0-12.0); NEUTROPHILS # (AUTO) 16.8 K/uL (1.8-8.9); PLATELET COUNT (AUTO) 299 K/uL (150-450); RED BLOOD CELL COUNT(AUTO) 5.33 MIL/uL (4.5-6.0); WHITE BLOOD COUNT (AUTO) 17.9 K/uL (4.3-11.0)
[2022-11-08 04:49] LABS: CALCIUM, SERUM 8.1 mg/dL (8.5-10.1); CREATININE 1.1 mg/dL (0.6-1.3); POTASSIUM 3.2 mmol/L (3.5-5.1)
[2022-11-08 04:51] LABS: BAND % (MANUAL) 2 % (0.0-5.0); LYMPHOCYTES % (MANUAL) 3 % (16-48); MONOCYTES % (MANUAL) 5 % (0-11.0); NEUTROPHILS % (MANUAL) 90 (42-76)
[2022-11-08 04:52] LABS: BASOPHILS % (MANUAL) 0 % (0.0-2.0); EOSINOPHILS % (MANUAL) 0 % (0-4)
[2022-11-08 04:56] LABS: ALBUMIN 2.4 g/dL (3.4-5.0); BILIRUBIN,TOTAL 0.5 mg/dL (0.2-1.0); TOTAL PROTEIN, SERUM 6.5 g/dL (6.4-8.2)
[2022-11-08 05:58] LABS: ABG BASE EXCESS 13.4 mmol/L; ABG OXYGEN SATURATION 98.8 % (92.0-98.5); ABG PH 7.561 (7.350-7.450); ABG PO2 138.1 mmHg (75.0-100.0); AaDO2 532.9 mmHg; COHb 0.4 % (0.5-1.5); MetHb 0.1 % (0.0-1.5); O2Hb 98.3 % (94.0-97.0); SITE, ABG Right Radial
--- NOTE | 2022-11-08 06:30 | NUR ---
Patient resting.VS remains stable.SR.Tolerating BIPAP.AM ABG'S done by Cook and titrated down FIO2 to 80%.No acute distress noted.Bed bath rendered and complete linens changed.Turned and repositioned.Adequate urine output.No bm noted.Due medications administered.Pending US Guided Thoracentesis.Patient more calm and cooperative with care.Off 1:1 Sitter.Will endorse to day shift for MONTY.
[2022-11-08] MEDS: methylPREDNISolone SOD SUCC 125 MG/2ML VIAL IV SCH ×3 (06:50→21:48)
[2022-11-08] MEDS: ENSURE ENLIVE CHOC 237 ML CAN PO SCH ×2 (07:53→17:40)
[2022-11-08] MEDS: AZITHROMYCIN 500 MG in IV D5W 250 ML IV SCH (07:53)
--- NOTE | 2022-11-08 08:52 | NUR ---
RN NOTES: SEEN BY DR BLACKWOOD WHO SAID DO NOT FEED PT NOW AWAIT FOR RT TO PLACE IN HIGH FLOW AFTER 30 MINUTES RECHECK PT AND DO ABG AND NOTIFY HIM THEN DECIDE IF HE WILL EAT OR NO, RT AT BEDSIDE SETTING UP THE HIGH FLOW
[2022-11-08] MEDS: AMLODIPINE BESYLATE 5 MG TABLET PO SCH (09:23)
[2022-11-08] MEDS: FUROSEMIDE 40 MG/4 ML VIAL IV SCH ×3 (09:23→17:40)
[2022-11-08] MEDS: LISINOPRIL (20MG) 20 MG TABLET PO SCH ×2 (09:23→17:40)
--- NOTE | 2022-11-08 09:39 | NUR ---
RN NOTES: HOUSE NURSE CAME FOR THORACENTESIS, DR BLACKWOOD AT BEDSIDE ORDERED TO CANCEL IT SAYING NOT NEEDED AT THIS TIME
[2022-11-08] MEDS: ENOXAPARIN SODIUM 40 MG/0.4 ML DISP.SYRIN SQ SCH (09:42)
[2022-11-08] MEDS: ASPIRIN EC 81 MG TABLET.DR PO SCH (09:42)
[2022-11-08] MEDS: CLOPIDOGREL BISULFATE 75 MG TABLET PO SCH (09:42)
[2022-11-08] MEDS: OFLOXACIN 0.3% OPHTH 5 ML BOTTLE LEFTEYE SCH ×4 (09:43→21:48)
--- NOTE | 2022-11-08 10:21 | NUR ---
RN NOTES: NOTED PT WITH TACHYPNEA, TACHYCARDIA 135 BPM, ORAL CARE AND ORAL SUCTION DONE, PLACED BACK ON BIPAP, PER DR BLACKWOOD DO NOT GIVE HIM BREAKFAST, SWALLOWED MORNING MEDS WITH SIPS OF ENSURE
[2022-11-08] MEDS ORDERED: POTASSIUM CHLORIDE 20 MEQ POWDER PACKET PO ONE (11:00)
[2022-11-08 11:27] LABS: NEUTROPHILS % (MANUAL) 97 (42-76)
[2022-11-08 11:28] LABS: BASOPHILS % (MANUAL) 0 % (0.0-2.0); EOSINOPHILS % (MANUAL) 0 % (0-4); LYMPHOCYTES % (MANUAL) 2 % (16-48); MONOCYTES % (MANUAL) 1 % (0-11.0)
--- NOTE | 2022-11-08 14:00 | NUR ---
rn notes: pt asked to give his wallet to his sister, sister at bedside picked up the wallet
[2022-11-08] MEDS: SOD FERRIC GLUC 125 MG in IV NS 0.9% 100 ML IV SCH (14:12)
[2022-11-08] MEDS: ACETAMINOPHEN 325 MG TABLET PO PRN (14:24)
--- NOTE | 2022-11-08 14:29 | NUR ---
multiple attempt to call pathology regarding cytology / pathology orders cancelled but failed. left message to office, medical laboratory technicians hali stated unable to help with problem.
--- NOTE | 2022-11-08 15:54 | NUR ---
RN NOTES: NOTED NOSE EXCORIATION PER CHARGE NURSE FROM BIPAP MASK THAT IS WHY USING MASK THAT FIT MOUTH ONLY, AVOID APPLYING BIPAP MASK ON NOSE EXCORIATION
--- NOTE | 2022-11-08 18:45 | NUR ---
RN NOTES: PT ON BIPAP, NO SOB NOTED, O2 SAT 97%, ALERT AND ORIENTED X 2-3, DENIED PAIN OR DISCOMFORT.ALL DUE MEDS ARE GIVEN ORDERED, F/C DRAINING YELLOW CLEAR URINE, BED IN LOW AND LOCKED POSITION, CALL LIGHT WITHIN REACH, WILL ENDORSE TO SUSTAINABLE AGRICULTURE SPECIALIST RN FOR MONTY
--- NOTE | 2022-11-08 20:00 | NUR ---
Received patient A/OX3.VSS.SR.Respiration even and unlabored.With BIPAP at prescribed settings well tolerated.Patient denies pain or any discomfort.FC to gravity.Turned and repositioned.Continue monitoring.Safety precaution maintained.Call light at bedside.
[2022-11-08] MEDS: TAMSULOSIN 0.4 MG CAP.SR.24H PO SCH (21:49)
[2022-11-08] MEDS: ATORVASTATIN 40 MG TABLET PO SCH (21:49)
[2022-11-08] MEDS: CEFTRIAXONE 1 G in IV D5W 50 ML IV SCH (21:49)
[2022-11-09] VITALS (25 sets, daily range): BP systolic 84–154; BP diastolic 55–86
--- NOTE | 2022-11-09 | NUR ---
Patient resting.VS remains stable.Turned and repositioned.Safety measures implemnted.
[2022-11-09] MEDS: IV NS 0.9% 250 ML IV PRN (00:49)
[2022-11-09] MEDS: ALBUTEROL FS 2.5 MG/3 ML VIAL.NEB IH SCH ×4 (02:03→19:55)
[2022-11-09] MEDS: IPRATROPIUM NEB FS 0.5 MG/2.5 ML AMPUL.NEB NEB SCH ×4 (02:03→19:55)
--- NOTE | 2022-11-09 04:00 | NUR ---
Patient awake requesting food.Offered pudding,Jello and water well tolerated.Aspiration precaution observed.
[2022-11-09] MEDS: methylPREDNISolone SOD SUCC 125 MG/2ML VIAL IV SCH ×3 (04:50→21:11)
--- NOTE | 2022-11-09 06:35 | NUR ---
Patient resting vs stable.SR.Tolerating BIPAP.Had BMX1 during the night.Kept clean and dry. AM care done.Turned and repositioned.Kept comfortable.
--- NOTE | 2022-11-09 07:26 | NUR ---
ICU/RN PT RECEIVED IN BED, RESTING. PT ON BIPAP 22/06, RATE 18 FIOW 70%. SINUS RHYTHM ON MONITOR. SILVERMAN CATH IN PLACE. RIGHT AC 20G AND RIGHT EJ 20G IN PLACE. BED LOCKED AND IN LOWEST POSITION, CALL LIGHT WITHIN REACH, 3 SIDE RAILS UP.
[2022-11-09] MEDS: ENSURE ENLIVE CHOC 237 ML CAN PO SCH ×2 (07:44→17:08)
[2022-11-09 07:56] LABS: BASOPHILS # (AUTO) 0.1 K/uL (0.0-0.2); BASOPHILS % (AUTO) 0.5 % (0.0-2.0); HEMATOCRIT 36 % (39-51); LYMPHOCYTES # (AUTO) 0.2 K/uL (0.8-4.8); LYMPHOCYTES % (AUTO) 1.1 % (20.0-44.0); MEAN CORPUSCULAR HGB CONC 28 g/dl (31.0-36.0); MEAN CORPUSCULAR VOLUME 65 fL (80-96); MONOCYTES # (AUTO) 0.8 K/uL (0.1-1.30); MONOCYTES % (AUTO) 3.9 % (2.0-12.0); NEUTROPHILS # (AUTO) 18.9 K/uL (1.8-8.9); NEUTROPHILS % (AUTO) 94.5 % (43.0-81.0); PLATELET COUNT (AUTO) 300 K/uL (150-450); RED BLOOD CELL COUNT(AUTO) 5.51 MIL/uL (4.5-6.0)
[2022-11-09] MEDS: ASPIRIN EC 81 MG TABLET.DR PO SCH (08:02)
[2022-11-09] MEDS: CLOPIDOGREL BISULFATE 75 MG TABLET PO SCH (08:02)
[2022-11-09] MEDS: LISINOPRIL (20MG) 20 MG TABLET PO SCH ×2 (08:03→16:15)
[2022-11-09] MEDS: OFLOXACIN 0.3% OPHTH 5 ML BOTTLE LEFTEYE SCH ×4 (08:04→21:28)
[2022-11-09] MEDS: ENOXAPARIN SODIUM 40 MG/0.4 ML DISP.SYRIN SQ SCH (08:04)
[2022-11-09 08:21] LABS: CALCIUM, SERUM 8.4 mg/dL (8.5-10.1); CREATININE 0.9 mg/dL (0.6-1.3)
[2022-11-09 08:30] LABS: ALBUMIN 2.4 g/dL (3.4-5.0); BILIRUBIN,TOTAL 0.5 mg/dL (0.2-1.0); TOTAL PROTEIN, SERUM 6.4 g/dL (6.4-8.2)
[2022-11-09] MEDS: AZITHROMYCIN 500 MG in IV D5W 250 ML IV SCH (09:04)
--- NOTE | 2022-11-09 09:44 | NUR ---
ICU/RN PT UNABLE TO TOLERATE HFNC 40L 100%. PLACED BACK ON BIPAP BY RT.
[2022-11-09] MEDS: ACETAMINOPHEN 325 MG TABLET PO PRN ×3 (10:13→22:28)
[2022-11-09 15:53] LABS: LYMPHOCYTES % (MANUAL) 3 % (16-48); MONOCYTES % (MANUAL) 4 % (0-11.0); NEUTROPHILS % (MANUAL) 93 (42-76)
--- NOTE | 2022-11-09 19:51 | NUR ---
RN OPENING NOTE PT A&OX2. NSR ON RAIL CAR PAINTER/SANDBLASTER. SKIN IS WARM AND DRY. RESPIRATIONS EVEN AND UNLABORED ON BIPAP. IV R FA 20 G INTACT AND SALINE LOCKED. R EJ 20G INTACT. VS STABLE. NO ACUTE SIGNS OF DISTRESS. BED LOCKED AND AT LOWEST LEVEL WITH 2 RAILS UP. CALL LIGHT WITHIN REACH.
[2022-11-09] MEDS: ATORVASTATIN 40 MG TABLET PO SCH (21:11)
[2022-11-09] MEDS: TAMSULOSIN 0.4 MG CAP.SR.24H PO SCH (21:11)
[2022-11-09] MEDS: CEFTRIAXONE 1 G in IV D5W 50 ML IV SCH (21:11)
[2022-11-10] VITALS (50 sets, daily range): BP systolic 92–140; BP diastolic 50–86
[2022-11-10] MEDS: ALBUTEROL FS 2.5 MG/3 ML VIAL.NEB IH SCH ×4 (01:58→19:27)
[2022-11-10] MEDS: IPRATROPIUM NEB FS 0.5 MG/2.5 ML AMPUL.NEB NEB SCH ×4 (01:58→19:27)
--- NOTE | 2022-11-10 02:06 | NUR ---
RN NOTE PT'S BIPAP SETTINGS ADJUSTED BY RT. FiO2 DECREASED TO 50%.
[2022-11-10 04:53] LABS: BASOPHILS # (AUTO) 0.1 K/uL (0.0-0.2); BASOPHILS % (AUTO) 0.4 % (0.0-2.0); HEMATOCRIT 35 % (39-51); HEMOGLOBIN 9.8 g/dL (13.5-17.5); LYMPHOCYTES # (AUTO) 0.3 K/uL (0.8-4.8); LYMPHOCYTES % (AUTO) 1.4 % (20.0-44.0); MEAN CORPUSCULAR HGB CONC 28 g/dl (31.0-36.0); MEAN CORPUSCULAR VOLUME 65 fL (80-96); MONOCYTES # (AUTO) 0.8 K/uL (0.1-1.30); MONOCYTES % (AUTO) 3.9 % (2.0-12.0); NEUTROPHILS # (AUTO) 18.8 K/uL (1.8-8.9); NEUTROPHILS % (AUTO) 94.3 % (43.0-81.0); PLATELET COUNT (AUTO) 266 K/uL (150-450); RED BLOOD CELL COUNT(AUTO) 5.35 MIL/uL (4.5-6.0); WHITE BLOOD COUNT (AUTO) 19.9 K/uL (4.3-11.0)
[2022-11-10 04:59] LABS: CALCIUM, SERUM 8.5 mg/dL (8.5-10.1); CREATININE 0.8 mg/dL (0.6-1.3); POTASSIUM 4.1 mmol/L (3.5-5.1)
[2022-11-10 05:06] LABS: ALBUMIN 2.3 g/dL (3.4-5.0); BILIRUBIN,TOTAL 0.5 mg/dL (0.2-1.0); TOTAL PROTEIN, SERUM 6.1 g/dL (6.4-8.2)
[2022-11-10] MEDS: methylPREDNISolone SOD SUCC 125 MG/2ML VIAL IV SCH ×3 (05:10→21:11)
[2022-11-10 06:06] LABS: *HGBFRC HEMOGLOBIN A2 1.6 % (1.8-3.2)
--- NOTE | 2022-11-10 06:43 | NUR ---
RN NOTE PT'S BIPAP SETTINGS ADJUSTED BY RT. FiO2 DECREASED TO 40%.
--- NOTE | 2022-11-10 07:20 | NUR ---
RN OPENING NOTE RECEIVED PT IN BED.PT ALERT AND ORIENTED X3-4. ABLE TO MAKE NEEDS KNOWN. PT CURRENTLY AT THIS TIME ON BIPAP.PT HAS RT HAND IV AND EF.IV PATENT, INTACT AND FLUSHING WELL. PT IS SINUS RHYTHM ON MONITOR AND O2 SATURATION ABOVE 92%. NO SIGNS OF PAIN OR DISCOMFORT NOTED AT THIS TIME. PT HAS SILVERMAN CATHETER. YELLOW COLOR DRAINING TO GRAVITY. TURNED AND REPOSITIONED. ALL SAFETY MEASURES IN PLACE. CALL LIGHT WITHIN REACH.BED LOCKED AT LOWEST POSITION. SIDE RAILS UPX2. CALL LIGHT WITHIN REACH.BED ALARM ON
--- NOTE | 2022-11-10 08:05 | NUR ---
PT. IS AWAKE AND ALERT PLACED INTO HIGH FLOW WITH 80% FIO2 / 40 FLOW ORDER Addendum: 11/10/22 at 0807 by LAMONT JASSO RT Amended: Links added.
[2022-11-10] MEDS: ASPIRIN EC 81 MG TABLET.DR PO SCH (08:35)
[2022-11-10] MEDS: CLOPIDOGREL BISULFATE 75 MG TABLET PO SCH (08:35)
[2022-11-10] MEDS: ENOXAPARIN SODIUM 40 MG/0.4 ML DISP.SYRIN SQ SCH (08:37)
[2022-11-10] MEDS: LISINOPRIL (20MG) 20 MG TABLET PO SCH ×3 (08:37→17:32)
[2022-11-10] MEDS: ENSURE ENLIVE CHOC 237 ML CAN PO SCH ×2 (08:38→17:32)
[2022-11-10] MEDS: OFLOXACIN 0.3% OPHTH 5 ML BOTTLE LEFTEYE SCH ×4 (09:37→21:12)
--- NOTE | 2022-11-10 11:00 | NUR ---
RN NOTE PROVIDED UPDATES TO FAMILY REGARDING PT CONDITION. PT AWARE AND OKAY
[2022-11-10 11:12] LABS: ABG BASE EXCESS 7.6 mmol/L; ABG OXYGEN SATURATION 96.9 % (92.0-98.5); ABG PCO2 48.6 mmHg (35.0-45.0); ABG PH 7.446 (7.350-7.450); ABG PO2 91.9 mmHg (75.0-100.0); AaDO2 427.5 mmHg; COHb 0.7 % (0.5-1.5); MetHb 0.2 % (0.0-1.5); SITE, ABG Right Brachial; VENT MODE, BG 80% HIGH FLOW
[2022-11-10 13:38] LABS: LYMPHOCYTES % (MANUAL) 2 % (16-48); MONOCYTES % (MANUAL) 3 % (0-11.0); NEUTROPHILS % (MANUAL) 95 (42-76)
--- NOTE | 2022-11-10 19:43 | NUR ---
RN OPENING NOTE PT A&OX3. PT RECEIVING BREATHING TX AT THIS TIME AND TOLERATING WELL. WILL BE PLACED BACK ON HIGH FLOW NC POST TX. SKIN IS PINK, WARM AND DRY. RESPIRATIONS ARE TACHYPNIC AT 28 WITH O2 SAT OF 95. SR ON BUSINESS LIAISON OFFICER. ALL OTHER VS STABLE. NO ACUTE SIGNS OF DISTRESS. SILVERMAN SECURED AND DRAINING APPROPRIATELY. IV ACCESS LOCATED R FOREARM 20G AND L EJ 20G. DENIES OTHER NEEDS AT THIS TIME. BED LOCKED AND AT LOWEST LEVEL WITH 2 RAILS UP. FIONA LIGHT WITHIN REACH.
--- NOTE | 2022-11-10 20:06 | NUR ---
RN CLOSING NOTE PT ALERT AND ORIENTED X3-4. ABLE TO MAKE NEEDS KNOWN. PT CURRENTLY AT THIS TIME ON HIGH FLOW NASAL CANNULA TOLERATING WELL.PT HAS RT HAND IV AND EF.IV PATENT, INTACT AND FLUSHING WELL. PT IS SINUS RHYTHM 84 ON MONITOR AND O2 SATURATION ABOVE 93%. NO SIGNS OF PAIN OR DISCOMFORT NOTED AT THIS TIME. PT HAS SILVERMAN CATHETER. YELLOW COLOR/LIV COLORED DRAINING TO GRAVITY. TURNED AND REPOSITIONED. ALL SAFETY MEASURES IN PLACE. CALL LIGHT WITHIN REACH.BED LOCKED AT LOWEST POSITION. SIDE RAILS UPX2. BED ALARM ON.ENDORSED TO BUDDHIST MONK RN. PT REQUESTING PHYSICAL THERAPY. ENDORSED TO BUDDHIST MONK RN
[2022-11-10] MEDS: CEFTRIAXONE 1 G in IV D5W 50 ML IV SCH (21:11)
[2022-11-10] MEDS: TAMSULOSIN 0.4 MG CAP.SR.24H PO SCH (21:11)
[2022-11-10] MEDS: ATORVASTATIN 40 MG TABLET PO SCH (21:11)
[2022-11-10] MEDS ORDERED: CEFTRIAXONE 1 G VIAL ONE (21:39)
--- NOTE | 2022-11-10 22:04 | NUR ---
RN NOTE PT REQUESTED THAT CALL BE MADE TO HIS SISTER CHRISTEN AT [phone]. CONTACTED CHRISTEN AND NOTIFIED HER THAT PT REQUESTING DENTURE CREAM. CHRISTEN STATED THAT SHE WILL CONTACT [facility] TO BRING IT TOMORROW IF HE IS AVAILABLE BUT IT IS NOT GUARANTEED. PT MADE AWARE AND VERBALIZED UNDERSTANDING.
--- NOTE | 2022-11-10 22:22 | NUR ---
RN NOTE 1 ORDER OF ROCEPHIN NOT ADMINISTERED ON EMAR DUE TO DEFECTIVE MEDICATION BAG. REPLACEMENT MED WAS MIXED BY CHARGE NURSE AND GIVEN ORDERED.
[2022-11-11] VITALS (24 sets, daily range): BP systolic 99–155; BP diastolic 34–108
[2022-11-11] MEDS: ALBUTEROL FS 2.5 MG/3 ML VIAL.NEB IH SCH ×4 (01:15→19:34)
[2022-11-11] MEDS: IPRATROPIUM NEB FS 0.5 MG/2.5 ML AMPUL.NEB NEB SCH ×4 (01:15→19:34)
[2022-11-11] MEDS: methylPREDNISolone SOD SUCC 125 MG/2ML VIAL IV SCH ×3 (04:33→21:30)
--- NOTE | 2022-11-11 05:02 | NUR ---
RN NOTE PT SHAVED PER REQUEST.
[2022-11-11] MEDS: ACETAMINOPHEN 325 MG TABLET PO PRN (05:18)
[2022-11-11 05:24] LABS: BASOPHILS % (AUTO) 0.1 % (0.0-2.0); HEMATOCRIT 36 % (39-51); HEMOGLOBIN 10.3 g/dL (13.5-17.5); LYMPHOCYTES # (AUTO) 0.3 K/uL (0.8-4.8); LYMPHOCYTES % (AUTO) 1.9 % (20.0-44.0); MEAN CORPUSCULAR HGB CONC 29 g/dl (31.0-36.0); MEAN CORPUSCULAR VOLUME 64 fL (80-96); MONOCYTES # (AUTO) 0.7 K/uL (0.1-1.30); MONOCYTES % (AUTO) 3.8 % (2.0-12.0); NEUTROPHILS # (AUTO) 16.2 K/uL (1.8-8.9); NEUTROPHILS % (AUTO) 94.2 % (43.0-81.0); PLATELET COUNT (AUTO) 272 K/uL (150-450); RED BLOOD CELL COUNT(AUTO) 5.62 MIL/uL (4.5-6.0); WHITE BLOOD COUNT (AUTO) 17.2 K/uL (4.3-11.0)
[2022-11-11 05:42] LABS: ALANINE AMINOTRANSFERASE 64 U/L (12-78); ALBUMIN 2.4 g/dL (3.4-5.0); ALKALINE PHOSPHATASE 93 U/L (46-116); ASPARTATE AMINOTRANSFERASE 17 U/L (15-37); BILIRUBIN,TOTAL 0.8 mg/dL (0.2-1.0); CALCIUM, SERUM 8.5 mg/dL (8.5-10.1); CARBON DIOXIDE 38 mmol/L (21-32); CHLORIDE 100 mmol/L (98-107); CREATININE 0.7 mg/dL (0.6-1.3); GLUCOSE 158 mg/dL (74-106); POTASSIUM 4.4 mmol/L (3.5-5.1); SODIUM SERUM 136 mmol/L (136-145); TOTAL PROTEIN, SERUM 6.3 g/dL (6.4-8.2); UREA NITROGEN, BLOOD 27 mg/dL (7-18)
--- NOTE | 2022-11-11 06:40 | NUR ---
RN CLOSING NOTE PT A&OX3. PT ON HIGH FLOW NC WITH FiO2 OF 80% AT 40 LPM. SKIN IS PINK, WARM AND DRY. RESPIRATIONS ARE UNLABORED WITH O2 SAT OF 95. SR ON DREDGE PIPEMAN. ALL OTHER VS STABLE. NO ACUTE SIGNS OF DISTRESS. SILVERMAN SECURED AND DRAINING APPROPRIATELY. IV ACCESS LOCATED R FOREARM 20G AND L EJ 20G. DENIES OTHER NEEDS AT THIS TIME. BED LOCKED AND AT LOWEST LEVEL WITH 2 RAILS UP. FIONA LIGHT WITHIN REACH. PT REQUESTING PT. WILL ENDORSE REQUEST TO AM NURSE.
[2022-11-11] MEDS: ENSURE ENLIVE CHOC 237 ML CAN PO SCH ×2 (08:24→17:56)
[2022-11-11] MEDS: ASPIRIN EC 81 MG TABLET.DR PO SCH (09:00)
[2022-11-11] MEDS: CLOPIDOGREL BISULFATE 75 MG TABLET PO SCH (09:00)
[2022-11-11] MEDS: OFLOXACIN 0.3% OPHTH 5 ML BOTTLE LEFTEYE SCH ×4 (09:00→22:25)
[2022-11-11] MEDS: LISINOPRIL (20MG) 20 MG TABLET PO SCH ×2 (09:00→17:56)
[2022-11-11] MEDS: ENOXAPARIN SODIUM 40 MG/0.4 ML DISP.SYRIN SQ SCH (11:52)
--- NOTE | 2022-11-11 20:00 | NUR ---
RN CLOSING NOTE RECEIVED PTS IN BED AWAKE ALERT X3. PT ON HIGH FLOW NC WITH FiO2 OF 80% AT 40 LPM. V/S STABLE AFEBRILE SKIN IS PINK, WARM AND DRY. BREATHING EVEN UNLABORED NO SOB NO DISTRESS NOTED . WITH O2 SAT OF 94. SR ON BUCKET CHUCKER. DUE MEDS GIVEN ORDERED NO ASE NOTED.. SILVERMAN SECURED AND DRAINING APPROPRIATELY. IV ACCESS LOCATED R FOREARM 20G SL. PATIENT DENIES PAIN AT THIS TIME. BED LOCKED AND AT LOWEST LEVEL WITH 2 RAILS UP. CALL LIGHT WITHIN REACH. WILL CONTINUITY TO MONITOR PTS. Addendum: 11/12/22 at 2311 by ELLA GOLDMAN RN opening notes at 1999hrs Addendum: 11/12/22 at 2323 by ELLA GOLDMAN RN DATE OF CHARTING IS 11/11/22 AT 2000HRS
--- NOTE | 2022-11-11 20:37 | NUR ---
RN CLOSING NOTE PT IN BED A&OX3. PT ON HIGH FLOW NC WITH FiO2 OF 80% AT 40 LPM. SKIN IS PINK, WARM AND DRY. RESPIRATIONS ARE UNLABORED WITH O2 SAT OF 92. SR ON GRANITE SETTER. VS STABLE. NO ACUTE SIGNS OF DISTRESS. SILVERMAN SECURED AND DRAINING APPROPRIATELY. IV ACCESS LOCATED R FOREARM 20G SL. PATIENT DENIES PAIN AT THIS TIME. BED LOCKED AND AT LOWEST LEVEL WITH 2 RAILS UP. CALL LIGHT WITHIN REACH. WILL ENDORSE CONTINUITY OF CARE TO REBEAMER NURSE.
[2022-11-11 21:31] LABS: LYMPHOCYTES % (MANUAL) 3 % (16-48); MONOCYTES % (MANUAL) 5 % (0-11.0); NEUTROPHILS % (MANUAL) 92 (42-76)
[2022-11-11] MEDS: CEFTRIAXONE 1 G in IV D5W 50 ML IV SCH (21:33)
[2022-11-11] MEDS: TAMSULOSIN 0.4 MG CAP.SR.24H PO SCH (21:34)
[2022-11-11] MEDS: ATORVASTATIN 40 MG TABLET PO SCH (21:35)
[2022-11-12] VITALS (29 sets, daily range): BP systolic 107–155; BP diastolic 70–95
[2022-11-12] MEDS: ALBUTEROL FS 2.5 MG/3 ML VIAL.NEB IH SCH ×4 (01:01→19:27)
[2022-11-12] MEDS: IPRATROPIUM NEB FS 0.5 MG/2.5 ML AMPUL.NEB NEB SCH ×4 (01:01→19:27)
[2022-11-12] MEDS: ACETAMINOPHEN 325 MG TABLET PO PRN ×2 (01:50→21:57)
[2022-11-12] MEDS: methylPREDNISolone SOD SUCC 125 MG/2ML VIAL IV SCH ×3 (05:17→20:14)
[2022-11-12 05:49] LABS: BASOPHILS % (AUTO) 0.2 % (0.0-2.0); HEMATOCRIT 35 % (39-51); HEMOGLOBIN 10.2 g/dL (13.5-17.5); LYMPHOCYTES # (AUTO) 0.3 K/uL (0.8-4.8); LYMPHOCYTES % (AUTO) 1.7 % (20.0-44.0); MEAN CORPUSCULAR HGB CONC 29 g/dl (31.0-36.0); MEAN CORPUSCULAR VOLUME 64 fL (80-96); MONOCYTES # (AUTO) 0.6 K/uL (0.1-1.30); MONOCYTES % (AUTO) 3.7 % (2.0-12.0); NEUTROPHILS # (AUTO) 15.7 K/uL (1.8-8.9); NEUTROPHILS % (AUTO) 94.4 % (43.0-81.0); PLATELET COUNT (AUTO) 292 K/uL (150-450); RED BLOOD CELL COUNT(AUTO) 5.43 MIL/uL (4.5-6.0); WHITE BLOOD COUNT (AUTO) 16.6 K/uL (4.3-11.0)
[2022-11-12 05:51] LABS: ALANINE AMINOTRANSFERASE 63 U/L (12-78); ALBUMIN 2.5 g/dL (3.4-5.0); ALKALINE PHOSPHATASE 93 U/L (46-116); ASPARTATE AMINOTRANSFERASE 18 U/L (15-37); BILIRUBIN,TOTAL 0.6 mg/dL (0.2-1.0); CALCIUM, SERUM 8.3 mg/dL (8.5-10.1); CARBON DIOXIDE 37 mmol/L (21-32); CHLORIDE 103 mmol/L (98-107); CREATININE 0.6 mg/dL (0.6-1.3); GLUCOSE 166 mg/dL (74-106); POTASSIUM 4.6 mmol/L (3.5-5.1); SODIUM SERUM 140 mmol/L (136-145); TOTAL PROTEIN, SERUM 6.2 g/dL (6.4-8.2); UREA NITROGEN, BLOOD 28 mg/dL (7-18)
--- NOTE | 2022-11-12 05:56 | NUR ---
PLUMBING MANAGER NOTES PT REMAINS IN BED A/0X3 ON HI FLOW 40/80 WELL TOLERATED BY PTS ON TELE SR ON THE MONITOR NO SOB NO DISTRESS NOTED. BED LOCKED AND IN LOWEST POSITION, WILL ENDORSE TO MORNING SHIFT NURSE FOR CONTINUITY OF CARE .
--- NOTE | 2022-11-12 07:30 | NUR ---
DIPLOMA MAKER AM NOTES PT IN BED, AWAKE ALERT X3. PT ON HIGH FLOW NC WITH FiO2 OF 80% AT 40 LPM. O2 SAT 93%. NO SOB, RESPIRATION UNLABORED. SR HR 68 ON MONITOR. DENIES PAIN. RIGHT FA G 20 IV ACCESS FLUSHES WELL, SITE CLEAR. SEE NURSING FLOWHSEET FOR SKIN ISSUES. SILVERMAN CATH IN PLACE. ADEQUATE URINE OUTPUT. PUREED DIET. SAFETY MEASURES IN PLACE. BED LOCKED AND AT LOWEST LEVEL WITH 2 RAILS UP. CALL LIGHT WITHIN REACH. WILL CONTINUE TO MONITOR.
[2022-11-12] MEDS: ENSURE ENLIVE CHOC 237 ML CAN PO SCH ×2 (08:22→17:17)
[2022-11-12] MEDS: LISINOPRIL (20MG) 20 MG TABLET PO SCH ×2 (08:52→17:18)
[2022-11-12] MEDS: OFLOXACIN 0.3% OPHTH 5 ML BOTTLE LEFTEYE SCH ×4 (08:53→20:14)
[2022-11-12] MEDS: ASPIRIN EC 81 MG TABLET.DR PO SCH (08:53)
[2022-11-12] MEDS: CLOPIDOGREL BISULFATE 75 MG TABLET PO SCH (08:56)
[2022-11-12] MEDS: ENOXAPARIN SODIUM 40 MG/0.4 ML DISP.SYRIN SQ SCH (09:00)
--- NOTE | 2022-11-12 09:05 | NUR ---
RN NOTES PT FOR THORACENTESIS TODAY. OK TO HOLD LOVENOX DOSE THIS AM - PER DR. OLSON.
--- NOTE | 2022-11-12 09:30 | NUR ---
RN NOTES DUE MEDS GIVEN EXCEPT LOVENOX
[2022-11-12 11:22] LABS: LYMPHOCYTES % (MANUAL) 8 % (16-48); NEUTROPHILS % (MANUAL) 88 (42-76)
[2022-11-12 11:23] LABS: MONOCYTES % (MANUAL) 4 % (0-11.0)
--- NOTE | 2022-11-12 14:03 | NUR ---
RN NOTES PLACED A CALL TO ULTRASOUND EARLIER TWICE REGARDING US GUIDED THORACENTESIS ORDERED. MESSAGE LEFT.
--- NOTE | 2022-11-12 14:04 | NUR ---
RN NOTES PLACED A CALL TO RADIOLOGY REGARDING US GUIDED THORACENTESIS ORDER. SPOKE WITH ABDULAZIZ, PER HIM WILL RELAY TO ULTRASOUND ONCE THEY ARE IN THE DEPARTMENT.
--- NOTE | 2022-11-12 14:07 | NUR ---
RN NOTES NOTIFIED DR. BLACKWOOD ABOUT UNABLE TO REACH SOUND EFFECTS MANAGER SINCE THIS MORNING. PER MD TO TALK TO NURSING LINEN MANAGER. SPOKE WITH KEESHA NURSING LINEN MANAGER.
--- NOTE | 2022-11-12 14:31 | NUR ---
RN NOTES DR. BLACKWOOD NOTIFIED, AN ORDER WAS PLACED FOR CONSENT FOR THORACENTESIS ONLY AND NOT THE ORDER FOR THE PROCEDURE ITSELF. FÉLIX CHARGE NURSE PUT IN THE ORDER FOR THORACENTESIS. CONSENT SIGNED.
--- NOTE | 2022-11-12 16:09 | NUR ---
RN NOTES RIGHT SIDE, THORACENTESIS DONE. 500 ML COLLECTED. SPECIMEN SENT TO LAB
--- NOTE | 2022-11-12 19:06 | NUR ---
ACETYLENE TORCH OPERATOR CLOSING NOTES PT NOW RESTING IN BED, A/0X3 ON HI FLOW 40/80 WELL TOLERATED BY PTS ON TELE SR ON THE MONITOR NO SOB NO DISTRESS NOTED. REFUSED TO CHANGE BEDDINGS. PM CARE DONE. SAFETY MEASURES IN PLACE. BED LOCKED AND IN LOWEST POSITION, WILL ENDORSE TO NEXT SHIFT FOR MONTY.
--- NOTE | 2022-11-12 20:00 | NUR ---
MARINATOR OPENING NOTE RECEIVED PTS IN BED AWAKE ALERT X3. ON HIGH FLOW NC 40 LPM WITH FiO2 OF 80% .HOB ELEVATED AT ALL TIMES. V/S STABLE AFEBRILE SKIN WARM AND DRY. S/P THORACENTESIS NO BLEEDING ON THE SITE ,BREATHING EVEN UNLABORED NO SOB NO DISTRESS NOTED WITH O2 SAT OF 74. SR ON FOOD BROKER. DUE MEDS GIVEN ORDERED NO ASE NOTED.. SILVERMAN SECURED AND DRAINING APPROPRIATELY. IV ACCESS LOCATED R FOREARM 20G SL. PATIENT DENIES PAIN AT THIS TIME. BED LOCKED AND AT LOWEST LEVEL WITH 2 RAILS UP. ALL NEEDS ATTENDED TOO.CALL LIGHT WITHIN REACH. WILL CONTINUITY TO MONITOR PTS.
[2022-11-12] MEDS: TAMSULOSIN 0.4 MG CAP.SR.24H PO SCH (21:05)
[2022-11-12] MEDS: ATORVASTATIN 40 MG TABLET PO SCH (21:05)
[2022-11-12] MEDS: CEFTRIAXONE 1 G in IV D5W 50 ML IV SCH (21:18)
--- NOTE | 2022-11-12 21:57 | NUR ---
LOCAL BULK DRIVER NOTES C/O OF HEADACHE TYLENOL 650MG GIVEN ORDERED.
[2022-11-13] VITALS (42 sets, daily range): BP systolic 100–153; BP diastolic 37–108
[2022-11-13] MEDS: ALBUTEROL FS 2.5 MG/3 ML VIAL.NEB IH SCH ×4 (01:09→20:07)
[2022-11-13] MEDS: IPRATROPIUM NEB FS 0.5 MG/2.5 ML AMPUL.NEB NEB SCH ×4 (01:09→20:07)
[2022-11-13] MEDS: methylPREDNISolone SOD SUCC 125 MG/2ML VIAL IV SCH ×3 (04:24→20:08)
[2022-11-13 05:04] LABS: BASOPHILS % (AUTO) 0.1 % (0.0-2.0); HEMATOCRIT 34 % (39-51); LYMPHOCYTES # (AUTO) 0.3 K/uL (0.8-4.8); MEAN CORPUSCULAR HGB CONC 29 g/dl (31.0-36.0); MEAN CORPUSCULAR VOLUME 63 fL (80-96); MONOCYTES # (AUTO) 0.9 K/uL (0.1-1.30); MONOCYTES % (AUTO) 5.6 % (2.0-12.0); NEUTROPHILS # (AUTO) 14.9 K/uL (1.8-8.9); NEUTROPHILS % (AUTO) 92.3 % (43.0-81.0); PLATELET COUNT (AUTO) 298 K/uL (150-450); RED BLOOD CELL COUNT(AUTO) 5.39 MIL/uL (4.5-6.0); WHITE BLOOD COUNT (AUTO) 16.1 K/uL (4.3-11.0)
[2022-11-13 05:06] LABS: CALCIUM, SERUM 8.2 mg/dL (8.5-10.1); CREATININE 0.6 mg/dL (0.6-1.3); POTASSIUM 4.8 mmol/L (3.5-5.1)
[2022-11-13 05:12] LABS: ALBUMIN 2.3 g/dL (3.4-5.0); BILIRUBIN,TOTAL 0.6 mg/dL (0.2-1.0); TOTAL PROTEIN, SERUM 5.6 g/dL (6.4-8.2)
[2022-11-13] MEDS: ACETAMINOPHEN 325 MG TABLET PO PRN (05:25)
--- NOTE | 2022-11-13 06:09 | NUR ---
SEAT COVER INSTALLER NOTES PT REMAINS IN BED A/0X3 ON HI FLOW 40/80 WELL TOLERATED BY PTS ON TELE SR 74 ON THE MONITOR , NO SOB NO DISTRESS NOTED. V/S STABLE AFEBRILE .BED LOCKED AND IN LOWEST POSITION,TYLENOL 650MG FOR HEADACHE GIVEN ORDERED. WILL ENDORSE TO MORNING SHIFT NURSE FOR CONTINUITY OF CARE .
--- NOTE | 2022-11-13 08:00 | NUR ---
RN NOTES RECEIVED PATIENT ON HF40/80%. PATIENT A/A/O X4, NO RESPIRATORY DISTRESS, PATIENT ABLE TO VERBALIZE NEEDS, DUE MEDICATION ADMINISTERED, IV ACCESS ON RFA INTACT. HR-84 SR BEDSIDE MONITOR, SILVERMAN DRAINING VIA GRAVITY WITH SEDIMENTS. PATIENT TOLERATED BREAKFAST WELL. MINIMAL ASSIST TURN AND REPOSTION. CALL LIGHT WITHIN TO REACH. WILL FOLLOW UP.
[2022-11-13] MEDS: ENSURE ENLIVE CHOC 237 ML CAN PO SCH ×2 (08:05→18:38)
[2022-11-13] MEDS: LISINOPRIL (20MG) 20 MG TABLET PO SCH ×2 (08:53→18:36)
[2022-11-13] MEDS: ENOXAPARIN SODIUM 40 MG/0.4 ML DISP.SYRIN SQ SCH (08:55)
[2022-11-13] MEDS: ASPIRIN EC 81 MG TABLET.DR PO SCH (08:56)
[2022-11-13] MEDS: CLOPIDOGREL BISULFATE 75 MG TABLET PO SCH (08:56)
[2022-11-13] MEDS: OFLOXACIN 0.3% OPHTH 5 ML BOTTLE LEFTEYE SCH ×4 (08:57→20:08)
[2022-11-13 09:11] LABS: BASOPHILS % (MANUAL) 0 % (0.0-2.0); EOSINOPHILS % (MANUAL) 0 % (0-4); LYMPHOCYTES % (MANUAL) 3 % (16-48); MONOCYTES % (MANUAL) 7 % (0-11.0); NEUTROPHILS % (MANUAL) 90 (42-76)
--- NOTE | 2022-11-13 12:00 | NUR ---
RN NOTES PATIENT RESTING NO ACUTE RESPIRATORY DISTRESS. WILL FOLLOW UP.
--- NOTE | 2022-11-13 18:45 | NUR ---
rn notes PM care done, patient awake, resumed HF 40l/80% no acute respiratory distress, due medication administered, vss. patient refused pain. Tolerated dinner 100% self. turn and reposition self with assist. call light within to reach. endorsed oncoming nurse ean.
--- NOTE | 2022-11-13 20:00 | NUR ---
INDUSTRIAL HYGIENE MANAGER OPENING NOTE RECEIVED PTS IN BED AWAKE ALERT X3.VERBALLY RESPONSIVE ABLE TO MAKE NEEDS KNOWN, ON HIGH FLOW NC 40 LPM WITH FiO2 OF 80% .HOB ELEVATED AT ALL TIMES. V/S STABLE AFEBRILE SKIN WARM AND DRY ,BREATHING EVEN UNLABORED NO SOB NO DISTRESS NOTED WITH O2 SAT OF 90. SR ON ORTHOPEDIC TECH. DUE MEDS GIVEN ORDERED NO ASE NOTED.. SILVERMAN SECURED AND DRAINING APPROPRIATELY. IV ACCESS LOCATED R FOREARM 20G SL. PATIENT DENIES PAIN AT THIS TIME. BED LOCKED AND AT LOWEST LEVEL WITH 2 RAILS UP. ALL NEEDS ATTENDED TOO.CALL LIGHT WITHIN REACH. WILL CONTINUITY TO MONITOR PTS.
[2022-11-13] MEDS: ATORVASTATIN 40 MG TABLET PO SCH (21:05)
[2022-11-13] MEDS: CEFTRIAXONE 1 G in IV D5W 50 ML IV SCH (21:05)
[2022-11-13] MEDS: TAMSULOSIN 0.4 MG CAP.SR.24H PO SCH (21:05)
--- NOTE | 2022-11-13 23:45 | NUR ---
FOOD SERVICE AMBASSADOR NOTES PTS WAS PLACE ON BIPAP RATE 18 IPAP 15 EPAP 5 TOLERATING WELL WILL COTINUE TO MONITOR.
[2022-11-14] VITALS (46 sets, daily range): BP systolic 67–127; BP diastolic 32–90
[2022-11-14] MEDS: IPRATROPIUM NEB FS 0.5 MG/2.5 ML AMPUL.NEB NEB SCH ×4 (00:58→19:55)
[2022-11-14] MEDS: ALBUTEROL FS 2.5 MG/3 ML VIAL.NEB IH SCH ×4 (00:58→19:55)
[2022-11-14] MEDS: methylPREDNISolone SOD SUCC 125 MG/2ML VIAL IV SCH ×2 (05:07→10:30)
--- NOTE | 2022-11-14 05:20 | NUR ---
agriculture laborer notes PTS OFF BIPAP , PTS PLACE ON HIGH FLOW 40 LITTERS 80% FIO2
[2022-11-14 05:47] LABS: CALCIUM, SERUM 7.9 mg/dL (8.5-10.1); CARBON DIOXIDE 35 mmol/L (21-32); CHLORIDE 105 mmol/L (98-107); CREATININE 0.6 mg/dL (0.6-1.3); GLUCOSE 163 mg/dL (74-106); POTASSIUM 4.8 mmol/L (3.5-5.1); SODIUM SERUM 140 mmol/L (136-145); UREA NITROGEN, BLOOD 30 mg/dL (7-18)
[2022-11-14 05:57] LABS: ALANINE AMINOTRANSFERASE 55 U/L (12-78); ALBUMIN 2.1 g/dL (3.4-5.0); ALKALINE PHOSPHATASE 78 U/L (46-116); ASPARTATE AMINOTRANSFERASE 14 U/L (15-37); BILIRUBIN,TOTAL 0.5 mg/dL (0.2-1.0); HEMATOCRIT 33 % (39-51); HEMOGLOBIN 9.5 g/dL (13.5-17.5); LYMPHOCYTES # (AUTO) 0.3 K/uL (0.8-4.8); LYMPHOCYTES % (AUTO) 1.7 % (20.0-44.0); MEAN CORPUSCULAR HGB CONC 29 g/dl (31.0-36.0); MEAN CORPUSCULAR VOLUME 64 fL (80-96); MONOCYTES # (AUTO) 0.8 K/uL (0.1-1.30); MONOCYTES % (AUTO) 4.8 % (2.0-12.0); NEUTROPHILS # (AUTO) 15.3 K/uL (1.8-8.9); NEUTROPHILS % (AUTO) 93.5 % (43.0-81.0); PLATELET COUNT (AUTO) 266 K/uL (150-450); RED BLOOD CELL COUNT(AUTO) 5.11 MIL/uL (4.5-6.0); TOTAL PROTEIN, SERUM 5.1 g/dL (6.4-8.2); WHITE BLOOD COUNT (AUTO) 16.4 K/uL (4.3-11.0)
--- NOTE | 2022-11-14 06:27 | NUR ---
VESSEL ENGINEER CLOSING NOTES PT REMAINS IN BED A/0X3 ON HI FLOW 40/80 WELL TOLERATED BY PTS ON TELE SR 68 ON THE MONITOR , NO SOB NO DISTRESS NOTED. SATING 100% V/S STABLE AFEBRILE .BED LOCKED AND IN LOWEST POSITION, WILL ENDORSE TO MORNING SHIFT NURSE FOR CONTINUITY OF CARE .
[2022-11-14] MEDS: ENSURE ENLIVE CHOC 237 ML CAN PO SCH ×2 (07:54→16:36)
--- NOTE | 2022-11-14 08:00 | NUR ---
RN NOTES GET PATIENT A/0X3 ON HI FLOW 40/80 WELL TOLERATED, NO SOB NO DISTRESS NOTED, BEDSIDE MONITOR SHOWS 96%. REFUSED PAIN. V/S STABLE, AFEBRILE, DUE MEDICATION ADMINISTERED. NEEDS ATTENDED AND ANTICIPATES. TOLERATED BREAKFAST WELL. ASSIST TURN AND REPOSTION Q 2 HR. CALL LIGHT WITHIN TO REACH. WILL FOLLOW UP.
--- NOTE | 2022-11-14 09:00 | NUR ---
RN NOTES PER DR GONZALEZ ORDER CHANGE HF SETTINGS 30/60, RT NEXT TO THE PATIENT.
[2022-11-14] MEDS: ASPIRIN EC 81 MG TABLET.DR PO SCH (09:13)
[2022-11-14] MEDS: LISINOPRIL (20MG) 20 MG TABLET PO SCH ×2 (09:13→16:38)
[2022-11-14] MEDS: CLOPIDOGREL BISULFATE 75 MG TABLET PO SCH (09:13)
[2022-11-14] MEDS: ENOXAPARIN SODIUM 40 MG/0.4 ML DISP.SYRIN SQ SCH (09:14)
[2022-11-14] MEDS: OFLOXACIN 0.3% OPHTH 5 ML BOTTLE LEFTEYE SCH ×4 (09:19→21:10)
[2022-11-14 10:40] LABS: LYMPHOCYTES % (MANUAL) 1 % (16-48); NEUTROPHILS % (MANUAL) 96 (42-76)
[2022-11-14 10:41] LABS: BASOPHILS % (MANUAL) 0 % (0.0-2.0); EOSINOPHILS % (MANUAL) 0 % (0-4); MONOCYTES % (MANUAL) 3 % (0-11.0)
[2022-11-14] MEDS: IV NS 0.9% 250 ML IV PRN (16:33)
--- NOTE | 2022-11-14 18:30 | NUR ---
RN NOTES PM CARE DONE DUE MEDICATION ADMINISTERED, VSS. PATIENT TOLERATED DINNER WELL, HF SETTING IS 30L/60%. NO ACUTE RESPIRATORY DISTRESS, REFUSED PAIN. CALL LIGHT WITHIN TO REACH. ENDORSED ONCOMING NURSE MONTY.
--- NOTE | 2022-11-14 20:20 | NUR ---
PAINT DEPARTMENT SUPERVISOR OPENING NOTE PT RECEIVED IN BED, AWAKE, A&O X3-4, CALM, COOPERATIVE. PT ON HIGH-FLOW NC WITH 30L/MIN AND FIO2 OF 60% WITH CURRENT O2SAT OF 94%; NO S/S OF RESP DISTRESS, NO SOB, NON-LABORED AND EQUAL BREATHING; NOTED TO HAVE NON-PRODUCTIVE COUGH. PT ATTACHED TO BEDSIDE MONITOR, SR WITH HR OF 87. SILVERMAN INTACT AND PATENT, DRAINING CLEAR AND YELLOW URINE. IV ACCESS ON RIGHT HAND 20G, INTACT AND PATENT, FLUSHES EASILY WITH NO RESISTANCE, NS AT TKO. BED IN LOWEST POSITION, CALL LIGHT WITHIN REACH, SIDE RAILS UP X3. WILL CONTINUE TO MONITOR THROUGHOUT THE NIGHT.
[2022-11-14] MEDS: TAMSULOSIN 0.4 MG CAP.SR.24H PO SCH (21:02)
[2022-11-14] MEDS: CEFTRIAXONE 1 G in IV D5W 50 ML IV SCH (21:02)
[2022-11-14] MEDS: ATORVASTATIN 40 MG TABLET PO SCH (21:02)
[2022-11-14] MEDS: ACETAMINOPHEN 325 MG TABLET PO PRN (21:53)
--- NOTE | 2022-11-14 21:54 | NUR ---
RN NOTE PT REPORTS OF 5/10 HEADACHE AND REQUESTS FOR TYLENOL. PT ADMINISTERED TYLENOL 650 MG. WILL MONITOR FOR EFFECTIVENESS.
--- NOTE | 2022-11-14 23:30 | NUR ---
RN NOTE PT SWITCHED FROM HIGH-FLOW NASAL CANNULA TO NOCTURNAL BIPAP WITH SETTINGS 15/5, RATE 18, FIO2 60%
[2022-11-15] VITALS (27 sets, daily range): BP systolic 90–142; BP diastolic 56–80
[2022-11-15] MEDS: IPRATROPIUM NEB FS 0.5 MG/2.5 ML AMPUL.NEB NEB SCH ×4 (01:36→19:48)
[2022-11-15] MEDS: ALBUTEROL FS 2.5 MG/3 ML VIAL.NEB IH SCH ×4 (01:36→19:48)
[2022-11-15 05:13] LABS: BASOPHILS % (AUTO) 0.1 % (0.0-2.0); HEMATOCRIT 33 % (39-51); HEMOGLOBIN 9.6 g/dL (13.5-17.5); LYMPHOCYTES # (AUTO) 0.5 K/uL (0.8-4.8); LYMPHOCYTES % (AUTO) 2.9 % (20.0-44.0); MEAN CORPUSCULAR HGB CONC 29 g/dl (31.0-36.0); MEAN CORPUSCULAR VOLUME 64 fL (80-96); MONOCYTES # (AUTO) 1.2 K/uL (0.1-1.30); MONOCYTES % (AUTO) 7.2 % (2.0-12.0); NEUTROPHILS # (AUTO) 15.6 K/uL (1.8-8.9); NEUTROPHILS % (AUTO) 89.8 % (43.0-81.0); PLATELET COUNT (AUTO) 258 K/uL (150-450); RED BLOOD CELL COUNT(AUTO) 5.12 MIL/uL (4.5-6.0); WHITE BLOOD COUNT (AUTO) 17.4 K/uL (4.3-11.0)
[2022-11-15 05:54] LABS: ALBUMIN 2.2 g/dL (3.4-5.0); BILIRUBIN,TOTAL 0.5 mg/dL (0.2-1.0); CALCIUM, SERUM 8.1 mg/dL (8.5-10.1); CREATININE 0.6 mg/dL (0.6-1.3); POTASSIUM 4.6 mmol/L (3.5-5.1); TOTAL PROTEIN, SERUM 5.2 g/dL (6.4-8.2)
--- NOTE | 2022-11-15 06:36 | NUR ---
REJECTOR CLOSING NOTE PT REMAINS IN BED, AWAKE, SLEPT WELL THROUGHOUT THE NIGHT, A&O X3. PT SWITCHED BACK TO HIGH-FLOW NASAL CANNULA WITH O2SAT RANGING FROM 94%-99% THROUGHOUT THE NIGHT. ATTACHED TO BEDSIDE MONITOR, SR WITH HR RANGING FROM 65-89. SILVERMAN INTACT AND PATENT, DRAINING CLEAR AND YELLOW URINE. IV ACCESS ON RIGHT HAND 20G INTACT AND PATENT, FLUSHES EASILY WITH NO RESISTANCE, NS TKO. ALL DUE MEDS ADMINISTERED DURING THE NIGHT. BED IN LOWEST POSITION, CALL LIGHT WITHIN REACH, SIDE RAILS UP X3. WILL ENDORSE TO DAYSHIFT NURSE TO CONTINUE CARE.
--- NOTE | 2022-11-15 08:00 | NUR ---
RN NOTES PATIENT REMAIN ON HF 30L/60%, NO ACUTE RESPIRATORY DISTRESS. DUE MEDICATION ADMINISTERED, REFUSED PAIN, TOLERATED BREAKFAST WELL, NEEDS ATTENDED AND ANTICIPATED, SILVERMAN DRAINING VIA GRAVITY. ASSIST TURN AND REPOSTION Q 2 HR. CALL LIGHT WITHIN TO REACH. WILL FOLLOW UP.
[2022-11-15] MEDS: ENSURE ENLIVE CHOC 237 ML CAN PO SCH ×2 (09:27→17:01)
[2022-11-15] MEDS: methylPREDNISolone SOD SUCC 125 MG/2ML VIAL IV SCH (09:28)
[2022-11-15] MEDS: ASPIRIN EC 81 MG TABLET.DR PO SCH (09:28)
[2022-11-15] MEDS: CLOPIDOGREL BISULFATE 75 MG TABLET PO SCH (09:28)
[2022-11-15] MEDS: LISINOPRIL (20MG) 20 MG TABLET PO SCH ×2 (09:28→17:00)
[2022-11-15] MEDS: ENOXAPARIN SODIUM 40 MG/0.4 ML DISP.SYRIN SQ SCH (09:29)
[2022-11-15] MEDS: OFLOXACIN 0.3% OPHTH 5 ML BOTTLE LEFTEYE SCH ×4 (09:30→21:41)
--- NOTE | 2022-11-15 09:30 | NUR ---
RN NOTES PATIENT ON FACE MASK 6L. WILL FOLLOW UP.
--- NOTE | 2022-11-15 15:40 | NUR ---
RN NOTES PATIENT ON NC @ 4L, FIO2- 95%.
--- NOTE | 2022-11-15 18:30 | NUR ---
RN NOTES PM CARE DONE, PATIENT ON NC@4L FIO2-95%, PATIENT STABLE NO SOB, REFUSED PAIN, ASSIST TURN AND REPOSTION. DUE MEDICATION GIVEN, CALL LIGHT WITHIN TO REACH. UA OUTPUT WAS 1200ML. TOLERATED DINNER 100%.ENDORSED ONCOMING NURSE MONTY.
[2022-11-15] MEDS: IV NS 0.9% 250 ML IV PRN (18:42)
[2022-11-15 19:33] LABS: LYMPHOCYTES % (MANUAL) 5 % (16-48); MONOCYTES % (MANUAL) 4 % (0-11.0); NEUTROPHILS % (MANUAL) 91 (42-76)
--- NOTE | 2022-11-15 21:36 | NUR ---
ROENTGENOLOGY TEACHER OPENING NOTE PT RECEIVED IN BED, AWAKE, A&O X3, CALM, COOPERATIVE. PT NOTED TO BE ON 3L NC WITH CURRENT O2SAT OF 98%; NO S/S OF RESP DISTRESS, NO SOB OR COUGH, NON-LABORED AND EQUAL BREATHING. PT ATTACHED TO BEDSIDE MONITOR, SR WITH HR OF 79. SILVERMAN INTACT AND PATENT, DRAINING CLEAR AND YELLOW URINE. IV ACCESS ON LFA 20G INTACT AND PATENT, FLUSHES EASILY WITH NO RESISTANCE, NS TKO. BED IN LOWEST POSITION, CALL LIGHT WITHIN REACH, SIDE RAILS UP X3. WILL CONTINUE TO MONITOR THROUGHOUT THE NIGHT.
[2022-11-15] MEDS: ATORVASTATIN 40 MG TABLET PO SCH (21:41)
[2022-11-15] MEDS: CEFTRIAXONE 1 G in IV D5W 50 ML IV SCH (21:41)
[2022-11-15] MEDS: TAMSULOSIN 0.4 MG CAP.SR.24H PO SCH (21:42)
[2022-11-15] MEDS: ACETAMINOPHEN 325 MG TABLET PO PRN (21:42)
--- NOTE | 2022-11-15 21:42 | NUR ---
RN NOTE PT REPORTS OF A 5/10 HEADACHE. PT ADMINISTERED TYLENOL 650 MG. WILL MONITOR FOR EFFECTIVENESS.
[2022-11-16] VITALS (18 sets, daily range): BP systolic 93–126; BP diastolic 60–76
[2022-11-16] MEDS: IPRATROPIUM NEB FS 0.5 MG/2.5 ML AMPUL.NEB NEB SCH ×4 (02:29→19:58)
[2022-11-16] MEDS: ALBUTEROL FS 2.5 MG/3 ML VIAL.NEB IH SCH ×4 (02:29→19:58)
[2022-11-16 05:16] LABS: BASOPHILS % (AUTO) 0.1 % (0.0-2.0); HEMATOCRIT 34 % (39-51); HEMOGLOBIN 9.9 g/dL (13.5-17.5); LYMPHOCYTES # (AUTO) 0.5 K/uL (0.8-4.8); LYMPHOCYTES % (AUTO) 2.6 % (20.0-44.0); MEAN CORPUSCULAR HGB CONC 30 g/dl (31.0-36.0); MEAN CORPUSCULAR VOLUME 65 fL (80-96); MONOCYTES # (AUTO) 0.9 K/uL (0.1-1.30); NEUTROPHILS # (AUTO) 16.2 K/uL (1.8-8.9); NEUTROPHILS % (AUTO) 92.3 % (43.0-81.0); PLATELET COUNT (AUTO) 261 K/uL (150-450); WHITE BLOOD COUNT (AUTO) 17.5 K/uL (4.3-11.0)
[2022-11-16 05:24] LABS: ALANINE AMINOTRANSFERASE 69 U/L (12-78); ALBUMIN 2.3 g/dL (3.4-5.0); ALKALINE PHOSPHATASE 87 U/L (46-116); ASPARTATE AMINOTRANSFERASE 17 U/L (15-37); BILIRUBIN,TOTAL 0.5 mg/dL (0.2-1.0); CALCIUM, SERUM 7.9 mg/dL (8.5-10.1); CARBON DIOXIDE 31 mmol/L (21-32); CHLORIDE 104 mmol/L (98-107); CREATININE 0.7 mg/dL (0.6-1.3); GLUCOSE 146 mg/dL (74-106); POTASSIUM 4.7 mmol/L (3.5-5.1); SODIUM SERUM 137 mmol/L (136-145); TOTAL PROTEIN, SERUM 5.3 g/dL (6.4-8.2); UREA NITROGEN, BLOOD 27 mg/dL (7-18)
[2022-11-16 06:04] LABS: ABG BASE EXCESS 6.1 mmol/L; ABG OXYGEN SATURATION 90.5 % (92.0-98.5); ABG PCO2 42.6 mmHg (35.0-45.0); ABG PO2 57.8 mmHg (75.0-100.0); AaDO2 120.5 mmHg; COHb 0.8 % (0.5-1.5); MetHb 0.1 % (0.0-1.5); O2Hb 89.7 % (94.0-97.0); SITE, ABG Right Brachial; VENT MODE, BG 3L N/C
--- NOTE | 2022-11-16 06:45 | NUR ---
LITIGATION DOCKET MANAGER CLOSING NOTE PT REMAINS IN BED AWAKE, A&O X3. PT SWITCHED FROM BIPAP TO NC 3L; TOLERATED BIPAP WELL WITH O2SAT RANGING FROM 91%-98%; NO S/S OF RESP DISTRESS, NO SOB OR COUGH, NON-LABORED AND EQUAL BREATHING. ATTACHED TO BEDSIDE MONITOR, SR WITH HR RANGING FROM 62-84. SILVERMAN INTACT AND PATENT DRAINING CLEAR AND YELLOW URINE. LFA 20G INTACT AND PATENT, FLUSHES EASILY WITH NO RESISTANCE, NS TKO. ALL DUE MEDS ADMINISTERED DURING THE NIGHT. BED IN LOWEST POSITION, CALL LIGHT WITHIN REACH, SIDE RAILS UP X3. WILL ENDORSE TO DAYSHIFT NURSE TO CONTINUE CARE.
--- NOTE | 2022-11-16 07:05 | NUR ---
DOWEL INSERTING MACHINE OPERATOR OPENING NOTE: RECEIVED PT. IN BED, AWAKE, AOX4, CALM, COOPERATIVE, NO COMPLAINTS OF PAIN/DISCOMFORT. ON 5L NC WITH CURRENT O2 SAT OF 96%; NO S/S OF RESP DISTRESS, NO SOB OR COUGH, NON-LABORED AND EQUAL BREATHING. TACKER ELASTIC BAND READS NSR WITH HR OF 72 BPM. SILVERMAN INTACT AND PATENT, DRAINING CLEAR AND YELLOW URINE. IV ACCESS ON LFA 20G INTACT AND PATENT, FLUSHES EASILY WITH NO RESISTANCE, NS TKO. BED IN LOWEST POSITION, CALL LIGHT WITHIN REACH, SIDE RAILS UP X3. WILL CONTINUE TO MONITOR PT. FOR ANY CHANGES.
--- NOTE | 2022-11-16 07:30 | NUR ---
HOSPICE LIAISON NOTE: CASSEROLE PREPARER READS SINUS RHYTHM WITH ELEVATED T-WAVE, HR AT 75 BPM AT THIS TIME. PT. ASYMPTOMATIC. DR. SANCHEZ NOTIFIED. NO NEW ORDER. WILL CONTINUE TO MONITOR PT.'S HEMODYNAMIC STATUS.
[2022-11-16] MEDS: CLOPIDOGREL BISULFATE 75 MG TABLET PO SCH (08:12)
[2022-11-16] MEDS: ASPIRIN EC 81 MG TABLET.DR PO SCH (08:12)
[2022-11-16] MEDS: ENSURE ENLIVE CHOC 237 ML CAN PO SCH ×2 (08:13→16:06)
[2022-11-16] MEDS: OFLOXACIN 0.3% OPHTH 5 ML BOTTLE LEFTEYE SCH ×4 (08:13→21:56)
[2022-11-16] MEDS: LISINOPRIL (20MG) 20 MG TABLET PO SCH ×2 (08:13→16:28)
[2022-11-16] MEDS: ENOXAPARIN SODIUM 40 MG/0.4 ML DISP.SYRIN SQ SCH (08:15)
[2022-11-16 11:41] LABS: LYMPHOCYTES % (MANUAL) 3 % (16-48); MONOCYTES % (MANUAL) 3 % (0-11.0); NEUTROPHILS % (MANUAL) 94 (42-76)
--- NOTE | 2022-11-16 14:55 | NUR ---
PETE RN NOTES RECEIVED PATIENT FROM ICU VIA JULIETH BILLY RN GAVE BEDSIDE REPORT. PT. IN BED, AWAKE, AOX4, CALM, COOPERATIVE, NO COMPLAINTS OF PAIN/DISCOMFORT. NOW ON 3L NC WITH CURRENT O2 SAT OF 98% NO S/S OF RESPIRATORY DISTRESS, NO SOB OR COUGH, NON-LABORED AND EQUAL BREATHING. FRUIT AND VEGETABLE PACKER READS NSR. SILVERMAN INTACT AND PATENT, DRAINING CLEAR YELLOW URINE. IV ACCESS ON LFA 20G INTACT AND PATENT, FLUSHES EASILY WITH NO RESISTANCE, NS TKO.VS T 98.3 P 90 RR 20 BP 115/62. BED IN LOWEST POSITION, CALL LIGHT WITHIN REACH, SIDE RAILS UP X3. PLAN OF CARE CONTINUE.
--- NOTE | 2022-11-16 14:55 | NUR ---
FOREST AIDEROUGHER MERCHANT MILL NOTE: TRANSFERRED PT. TO [facility] ROOM 119-1 VIA HOSPITAL BED AT 1450. REPORT GIVEN AT BEDSIDE TO PETE RN - TRACEY ARAUJO. PT. IN BED, AWAKE, AOX4, CALM, COOPERATIVE, NO COMPLAINTS OF PAIN/DISCOMFORT. NOW ON 3L NC WITH CURRENT O2 SAT OF 99-100%; NO S/S OF RESP DISTRESS, NO SOB OR COUGH, NON-LABORED AND EQUAL BREATHING. FORMING MACHINE UPKEEP MECHANIC HELPER READS NSR WITH HR OF 83 BPM. ELEVATED T-WAVE NOTED, DR. SANCHEZ AWARE. SILVERMAN INTACT AND PATENT, DRAINED 850ML CLEAR AND YELLOW URINE SO FAR THIS SHIFT. IV ACCESS ON LFA 20G INTACT AND PATENT, FLUSHES EASILY WITH NO RESISTANCE, NS TKO. BED IN LOWEST POSITION, CALL LIGHT WITHIN REACH, SIDE RAILS UP X3. HANDED OVER PT. CHART, MEDICATIONS AND BELONGINGS TO PETE RN - TRACEY ARAUJO AT BEDSIDE. ENDORSED CONTINUITY OF CARE.
--- NOTE | 2022-11-16 18:09 | NUR ---
PETE CLOSING RN NOTES PATIENT IN BED, AWAKE, AOX4, CALM, COOPERATIVE, NO COMPLAINTS OF PAIN/DISCOMFORT. NOW ON 3L NC WITH CURRENT O2 SAT OF 98% NO S/S OF RESPIRATORY DISTRESS, NO SOB OR COUGH, NON-LABORED AND EQUAL BREATHING. REAL ESTATE COORDINATOR READS ST HR 106. SILVERMAN INTACT AND PATENT, DRAINING CLEAR YELLOW URINE. IV ACCESS ON LFA 20G INTACT AND PATENT, FLUSHES EASILY WITH NO RESISTANCE, NS TKO. BED IN LOWEST POSITION, CALL LIGHT WITHIN REACH, SIDE RAILS UP X3. WILL ENDORSE TO UNDERCAR SPECIALIST NURSE FOR MONTY.
--- NOTE | 2022-11-16 20:00 | NUR ---
PETE RN NOTE PT IN BED AWAKE, A/O X3. NO DISTRESS OR DISCOMFORT NOTED. DENIES PAIN. ON TELE SR 85. LFA #20 G SL INTACT AND PATENT. KEPT HIM DRY AND CLEAN. SIDE RAILS UP X 2 AND CALL LIGHT WITHIN REACH. CONTINUE TO MONITOR HIM. VSS.
[2022-11-16] MEDS: TAMSULOSIN 0.4 MG CAP.SR.24H PO SCH (21:55)
[2022-11-16] MEDS: CEFTRIAXONE 1 G in IV D5W 50 ML IV SCH (21:55)
[2022-11-16] MEDS: ATORVASTATIN 40 MG TABLET PO SCH (21:55)
[2022-11-17] VITALS: BP 109/67
[2022-11-17] MEDS: IPRATROPIUM NEB FS 0.5 MG/2.5 ML AMPUL.NEB NEB SCH ×4 (01:43→21:09)
[2022-11-17] MEDS: ALBUTEROL FS 2.5 MG/3 ML VIAL.NEB IH SCH ×4 (01:43→21:09)
--- NOTE | 2022-11-17 03:45 | NUR ---
PETE RN NOTE PT WOKE UP AND WANTS TO REMOVED BIPAP. BIPAP REMOVED AND APPLIED O2 3L NC O2 SAT 97%. NO DISTRESS NOTED. INFORMED RT.
[2022-11-17 04:00] VITALS: BP 115/55
[2022-11-17 05:46] LABS: CALCIUM, SERUM 7.8 mg/dL (8.5-10.1); CREATININE 0.6 mg/dL (0.6-1.3); POTASSIUM 4.4 mmol/L (3.5-5.1)
[2022-11-17 05:52] LABS: ALBUMIN 2.2 g/dL (3.4-5.0); BILIRUBIN,TOTAL 0.6 mg/dL (0.2-1.0)
[2022-11-17 05:56] LABS: BASOPHILS % (AUTO) 0.2 % (0.0-2.0); EOSINOPHILS % (AUTO) 1.5 % (0.0-6.0); HEMATOCRIT 36 % (39-51); HEMOGLOBIN 10.3 g/dL (13.5-17.5); LYMPHOCYTES # (AUTO) 0.7 K/uL (0.8-4.8); LYMPHOCYTES % (AUTO) 4.3 % (20.0-44.0); MEAN CORPUSCULAR HGB CONC 29 g/dl (31.0-36.0); MEAN CORPUSCULAR VOLUME 66 fL (80-96); MONOCYTES # (AUTO) 1.2 K/uL (0.1-1.30); MONOCYTES % (AUTO) 7.3 % (2.0-12.0); NEUTROPHILS # (AUTO) 14.8 K/uL (1.8-8.9); NEUTROPHILS % (AUTO) 86.7 % (43.0-81.0); PLATELET COUNT (AUTO) 236 K/uL (150-450)
--- NOTE | 2022-11-17 06:49 | NUR ---
PETE RN NOTE PT IN BED AWAKE, A/O X 4 . NO SOB, NO DISTRESS OR DISCOMFORT NOTED. DENIES PAIN. ON TELE SR. SIDE RAILS UP X 2 AND CALL LIGHT WITHIN REACH. WILL ENDORSE TO DAY SHIFT NURSE FOR CONTINUE TO CARE.
[2022-11-17] MEDS: ENSURE ENLIVE CHOC 237 ML CAN PO SCH ×2 (07:22→16:42)
--- NOTE | 2022-11-17 07:29 | NUR ---
PETE OPENING RN NOTES PATIENT IN BED, AWAKE, AOX4, CALM, COOPERATIVE, NO COMPLAINTS OF PAIN/DISCOMFORT. NOW ON 3L NC TOLERATING WELL, NO S/S OF RESPIRATORY DISTRESS, NO SOB OR COUGH, NON-LABORED AND EQUAL BREATHING. WILL CALL CLERK READS SR HR 87. SILVERMAN INTACT AND PATENT, DRAINING CLEAR YELLOW URINE. IV ACCESS ON LFA 20G INTACT AND PATENT, FLUSHES EASILY WITH NO RESISTANCE, NS TKO. BED IN LOWEST POSITION, CALL LIGHT WITHIN REACH, SIDE RAILS UP X3. PLAN OF CARE CONTINUE.
[2022-11-17 08:00] VITALS: BP 128/68
[2022-11-17] MEDS: LISINOPRIL (20MG) 20 MG TABLET PO SCH ×2 (08:24→17:03)
[2022-11-17] MEDS: CLOPIDOGREL BISULFATE 75 MG TABLET PO SCH (08:24)
[2022-11-17] MEDS: ASPIRIN EC 81 MG TABLET.DR PO SCH (08:25)
[2022-11-17] MEDS: OFLOXACIN 0.3% OPHTH 5 ML BOTTLE LEFTEYE SCH ×4 (08:25→21:28)
[2022-11-17] MEDS: ENOXAPARIN SODIUM 40 MG/0.4 ML DISP.SYRIN SQ SCH (08:27)
[2022-11-17 09:54] LABS: THYROID STIMULATING HORMONE 0.799 uIU/mL (0.358-3.74)
[2022-11-17] MEDS: ACETAMINOPHEN 325 MG TABLET PO PRN ×2 (10:44→21:16)
[2022-11-17 12:00] VITALS: BP 100/68
[2022-11-17 16:00] VITALS: BP 110/51
[2022-11-17 17:48] LABS: EOSINOPHILS % (MANUAL) 1 % (0-4); LYMPHOCYTES % (MANUAL) 6 % (16-48); MONOCYTES % (MANUAL) 4 % (0-11.0); NEUTROPHILS % (MANUAL) 89 (42-76)
--- NOTE | 2022-11-17 18:34 | NUR ---
TELE CLOSING RN NOTES PATIENT IN BED, AWAKE, AOX4, CALM, COOPERATIVE, NO COMPLAINTS OF PAIN/DISCOMFORT. NOW ON 3L NC TOLERATING WELL, NO S/S OF RESPIRATORY DISTRESS, NO SOB OR COUGH, NON-LABORED AND EQUAL BREATHING. LACQUER PIN PRESS OPERATOR READS ST 107, SILVERMAN INTACT AND PATENT, DRAINING CLEAR YELLOW URINE. IV ACCESS ON LFA 20G INTACT AND PATENT, FLUSHES EASILY WITH NO RESISTANCE, NS TKO. BED IN LOWEST POSITION, CALL LIGHT WITHIN REACH, SIDE RAILS UP X3. WILL ENDORSE TO NIGHT NURSE FOR MONTY.
[2022-11-17 20:00] VITALS: BP 114/68
[2022-11-17] MEDS: TAMSULOSIN 0.4 MG CAP.SR.24H PO SCH (21:11)
[2022-11-17] MEDS: ATORVASTATIN 40 MG TABLET PO SCH (21:11)
[2022-11-17] MEDS: CEFTRIAXONE 1 G in IV D5W 50 ML IV SCH (21:29)
--- NOTE | 2022-11-17 22:00 | NUR ---
telecommunications manager notes RT at bedside place pts on bipap rate 18 15/5 fio2 60% well tolerated by pts.no sob no distress noted.
[2022-11-18] VITALS: BP 93/61
--- NOTE | 2022-11-18 00:37 | NUR ---
LANGUAGE ARTS TEACHER OPENING NOTE: RECEIVED PT. IN BED, AWAKE, AOX4, CALM, COOPERATIVE, NO COMPLAINTS OF PAIN/DISCOMFORT. ON 3L NC WITH CURRENT O2 SAT OF 99%; NO S/S OF RESP DISTRESS, NO SOB OR COUGH, NON-LABORED AND EQUAL BREATHING. DELINQUENCY PREVENTION SOCIAL WORKER READS NSR WITH HR OF 85 BPM. SILVERMAN INTACT AND PATENT, DRAINING CLEAR AND YELLOW URINE. IV ACCESS ON LFA 20G INTACT AND PATENT, FLUSHES EASILY WITH NO RESISTANCE, NS TKO. BED IN LOWEST POSITION, CALL LIGHT WITHIN REACH, SIDE RAILS UP X3. WILL CONTINUE TO MONITOR PT. FOR ANY CHANGES.
[2022-11-18] MEDS: IPRATROPIUM NEB FS 0.5 MG/2.5 ML AMPUL.NEB NEB SCH ×4 (01:21→19:34)
[2022-11-18] MEDS: ALBUTEROL FS 2.5 MG/3 ML VIAL.NEB IH SCH ×4 (01:21→19:34)
[2022-11-18 04:00] VITALS: BP 120/70
--- NOTE | 2022-11-18 05:00 | NUR ---
telegraph equipment maintainer notes Pts off bipap at 5am place pts to nc at 3 liters tolerating well.
[2022-11-18 06:32] LABS: EOSINOPHILS % (AUTO) 3.3 % (0.0-6.0); HEMATOCRIT 35 % (39-51); HEMOGLOBIN 10.1 g/dL (13.5-17.5); LYMPHOCYTES # (AUTO) 0.7 K/uL (0.8-4.8); LYMPHOCYTES % (AUTO) 5.5 % (20.0-44.0); MEAN CORPUSCULAR HGB CONC 29 g/dl (31.0-36.0); MEAN CORPUSCULAR VOLUME 66 fL (80-96); MONOCYTES # (AUTO) 0.8 K/uL (0.1-1.30); MONOCYTES % (AUTO) 6.2 % (2.0-12.0); NEUTROPHILS # (AUTO) 10.7 K/uL (1.8-8.9); PLATELET COUNT (AUTO) 170 K/uL (150-450); RED BLOOD CELL COUNT(AUTO) 5.26 MIL/uL (4.5-6.0); WHITE BLOOD COUNT (AUTO) 12.6 K/uL (4.3-11.0)
--- NOTE | 2022-11-18 06:39 | NUR ---
television equipment operator notes Pts remain on nc at 3litersmof o2 sating 100% no sob no distress noted . will endorse to rn morning shift for continuity of care.
--- NOTE | 2022-11-18 07:19 | NUR ---
RECEIVED PT. IN BED, AWAKE, AOX4, CALM, COOPERATIVE, NO COMPLAINTS OF PAIN/DISCOMFORT. ON 3L NC WITH CURRENT O2 SAT OF 99%; NO S/S OF RESP DISTRESS, NO SOB OR COUGH, NON-LABORED AND EQUAL BREATHING. BUCKLE INSPECTOR READS NSR WITH HR OF 85 BPM. SILVERMAN INTACT AND PATENT, DRAINING CLEAR AND YELLOW URINE. IV ACCESS ON LFA 20G INTACT AND PATENT, FLUSHES EASILY WITH NO RESISTANCE, NS TKO. BED IN LOWEST POSITION, CALL LIGHT WITHIN REACH, SIDE RAILS UP X3. WILL CONTINUE TO MONITOR PT. FOR ANY CHANGES.
[2022-11-18] MEDS: CLOPIDOGREL BISULFATE 75 MG TABLET PO SCH (07:53)
[2022-11-18] MEDS: ACETAMINOPHEN 325 MG TABLET PO PRN ×2 (07:53→21:26)
[2022-11-18] MEDS: ASPIRIN EC 81 MG TABLET.DR PO SCH (07:53)
[2022-11-18] MEDS: ENOXAPARIN SODIUM 40 MG/0.4 ML DISP.SYRIN SQ SCH (07:54)
[2022-11-18 08:00] VITALS: BP 106/68
[2022-11-18 08:10] LABS: CALCIUM, SERUM 7.8 mg/dL (8.5-10.1); CARBON DIOXIDE 30 mmol/L (21-32); CHLORIDE 105 mmol/L (98-107); CREATININE 0.5 mg/dL (0.6-1.3); GLUCOSE 95 mg/dL (74-106); POTASSIUM 4.6 mmol/L (3.5-5.1); SODIUM SERUM 140 mmol/L (136-145); UREA NITROGEN, BLOOD 19 mg/dL (7-18)
[2022-11-18 08:16] LABS: ALANINE AMINOTRANSFERASE 52 U/L (12-78); ALBUMIN 2.2 g/dL (3.4-5.0); ALKALINE PHOSPHATASE 89 U/L (46-116); ASPARTATE AMINOTRANSFERASE 16 U/L (15-37); BILIRUBIN,TOTAL 0.5 mg/dL (0.2-1.0); TOTAL PROTEIN, SERUM 4.8 g/dL (6.4-8.2)
[2022-11-18] MEDS: ENSURE ENLIVE CHOC 237 ML CAN PO SCH ×2 (08:21→16:17)
[2022-11-18] MEDS: LISINOPRIL (20MG) 20 MG TABLET PO SCH ×2 (08:22→16:16)
[2022-11-18] MEDS: OFLOXACIN 0.3% OPHTH 5 ML BOTTLE LEFTEYE SCH ×4 (08:46→21:27)
[2022-11-18 12:00] VITALS: BP 107/64
[2022-11-18 16:00] VITALS: BP 118/72
--- NOTE | 2022-11-18 18:16 | NUR ---
PATIENT IS AWAKE, ALERT,ORIENTEDX3, RESTING COMFORTABLY IN BED, NO SIGNS OFIN DISTRESS, NOR COMPLAINT OF PAIN, STILL ON 02-3L/MIN, SPO2-98%, BREATHING EVENLY, VITAL SIGNS ARE STABLE, CM PLANNING TO DC PATIENT TO SNF TOMORROW, SILVERMAN CATHETER IS PATENT, SIDE RAILS UP, CALL LIGHT WITHIN REACH.
[2022-11-18 18:52] LABS: BAND % (MANUAL) 1 % (0.0-5.0); EOSINOPHILS % (MANUAL) 3 % (0-4); LYMPHOCYTES % (MANUAL) 4 % (16-48); MONOCYTES % (MANUAL) 2 % (0-11.0); NEUTROPHILS % (MANUAL) 90 (42-76)
[2022-11-18 20:00] VITALS: BP 112/61
--- NOTE | 2022-11-18 20:00 | NUR ---
ALTITUDE CHAMBER TECHNICIAN OPENING NOTE: RECEIVED PT. IN BED, AWAKE, AOX4, CALM, COOPERATIVE, NO COMPLAINTS OF PAIN/DISCOMFORT. ON 3L NC WITH CURRENT O2 SAT OF 99%; NO S/S OF RESP DISTRESS, NO SOB OR COUGH, NON-LABORED AND EQUAL BREATHING. INTEGRATED CIRCUIT IC LAYOUT DESIGNER READS NSR WITH HR OF 75 BPM. SILVERMAN INTACT AND PATENT, DRAINING CLEAR AND YELLOW URINE. IV ACCESS ON LFA 20G INTACT AND PATENT, FLUSHES EASILY WITH NO RESISTANCE, NS TKO. BED IN LOWEST POSITION, CALL LIGHT WITHIN REACH, SIDE RAILS UP X3. WILL CONTINUE TO MONITOR PT. FOR ANY CHANGES.
--- NOTE | 2022-11-18 21:15 | NUR ---
NETWORK SECURITY ADMINISTRATOR NOTES Rt AT bedside Pt placed on Bipap at 21:15 on ordered settings of 15/5 rate of 18, Fio2 30%. Pt is comfortable,
--- NOTE | 2022-11-18 21:20 | NUR ---
Pt placed on Bipap at 21:15 on ordered settings of 15/5 rate of 18, Fio2 30%. Pt is comfortable, Bipap is plugged into red outlet with alarms on and audible. RN informed.
[2022-11-18] MEDS: ATORVASTATIN 40 MG TABLET PO SCH (21:25)
[2022-11-18] MEDS: TAMSULOSIN 0.4 MG CAP.SR.24H PO SCH (21:26)
[2022-11-18] MEDS: CEFTRIAXONE 1 G in IV D5W 50 ML IV SCH (21:32)
[2022-11-19] VITALS: BP 114/75
[2022-11-19] MEDS: ALBUTEROL FS 2.5 MG/3 ML VIAL.NEB IH SCH ×6 (01:31→20:22)
[2022-11-19] MEDS: IPRATROPIUM NEB FS 0.5 MG/2.5 ML AMPUL.NEB NEB SCH ×6 (01:31→20:22)
[2022-11-19 04:00] VITALS: BP 103/57
--- NOTE | 2022-11-19 04:12 | NUR ---
Pt requested to be removed from Bipap, Pt placed on 2 lpm NC humidified.
--- NOTE | 2022-11-19 07:17 | NUR ---
WIRE SPOOLER NOTES Pt requested to be removed from Bipap, Pt placed on 2 lpm NC humidified. TOLERATING WELL
--- NOTE | 2022-11-19 07:18 | NUR ---
telephone instrument supervisor notes Pts remain on nc at 3litersmof o2 sating 100% no sob no distress noted . will endorse to rn morning shift for continuity of care.
--- NOTE | 2022-11-19 07:20 | NUR ---
OUTSIDE MEDICAL SALES REPRESENTATIVE OPENING NOTE: RECEIVED PT. IN BED, AWAKE, AOX4, CALM, COOPERATIVE, NO COMPLAINTS OF PAIN/DISCOMFORT. ON 3L NC WITH CURRENT O2 SAT OF 98%; NO S/S OF RESP DISTRESS, NO SOB OR COUGH, NON-LABORED AND EQUAL BREATHING. REGULATORY ANALYST READS SR WITH HR OF 82 BPM. SILVERMAN INTACT AND PATENT, DRAINING CLEAR AND YELLOW URINE. IV ACCESS ON LFA 20G INTACT AND PATENT, FLUSHES EASILY WITH NO RESISTANCE, NS TKO. BED IN LOWEST POSITION, CALL LIGHT WITHIN REACH, SIDE RAILS UP X3. WILL CONTINUE TO MONITOR THE PATIENT AND FALLOW POC
[2022-11-19 08:00] VITALS: BP 133/79
[2022-11-19] MEDS: ENSURE ENLIVE CHOC 237 ML CAN PO SCH ×2 (08:04→16:21)
[2022-11-19] MEDS: ASPIRIN EC 81 MG TABLET.DR PO SCH (09:30)
[2022-11-19] MEDS: LISINOPRIL (20MG) 20 MG TABLET PO SCH ×2 (09:30→16:22)
[2022-11-19] MEDS: CLOPIDOGREL BISULFATE 75 MG TABLET PO SCH (09:30)
[2022-11-19] MEDS: ENOXAPARIN SODIUM 40 MG/0.4 ML DISP.SYRIN SQ SCH (09:34)
[2022-11-19] MEDS: ACETAMINOPHEN 325 MG TABLET PO PRN ×2 (09:35→21:01)
[2022-11-19] MEDS: OFLOXACIN 0.3% OPHTH 5 ML BOTTLE LEFTEYE SCH ×4 (09:40→20:32)
[2022-11-19 12:23] VITALS: BP 133/79
[2022-11-19 16:06] VITALS: BP 98/55
--- NOTE | 2022-11-19 16:22 | NUR ---
RN NOTE LISINOPRIL WASENT GIVEN DUE TO PATIENT HAS LOW BP 95/55
--- NOTE | 2022-11-19 18:42 | NUR ---
BIOFUELS TECHNOLOGY MANAGER CLOSING NOTE: RECEIVED PT. IN BED, AWAKE, AOX4, CALM, COOPERATIVE, NO COMPLAINTS OF PAIN/DISCOMFORT. ON 3L NC WITH CURRENT O2 SAT OF 99%; NO S/S OF RESP DISTRESS, NO SOB OR COUGH, NON-LABORED AND EQUAL BREATHING. PATIENT TRANSFERED TO [facility] .SILVERMAN INTACT AND PATENT, DRAINING CLEAR AND YELLOW URINE. IV ACCESS ON LFA 20G INTACT AND PATENT, FLUSHES EASILY WITH NO RESISTANCE, NS TKO. ALL MEDICATIONS WERE ADMINISTERED , ALL NEEDS WERE MET .BED IS AT LOWEST POSITION, CALL LIGHT WITHIN REACH, SIDE RAILS UP X3. WILL ENDORSE MORTGAGE LOAN CLOSER NURSE TO FALLOW POC
[2022-11-19 20:00] VITALS: BP 117/62
--- NOTE | 2022-11-19 20:00 | NUR ---
WAREHOUSE EXAMINER OPENING NOTE: RECEIVED PT. IN BED, AWAKE, AOX4, COOPERATIVE, NO COMPLAINTS OF PAIN/DISCOMFORT. ON 2L NC WITH CURRENT O2 SAT OF 99%; NO S/S OF RESP DISTRESS, NO SOB OR COUGH, NON-LABORED AND EQUAL BREATHING. GRID OPERATOR READS NSR WITH HR OF 85 BPM. SILVERMAN INTACT AND PATENT, DRAINING CLEAR AND YELLOW URINE. IV ACCESS ON LFA 20G INTACT AND PATENT, FLUSHES EASILY WITH NO RESISTANCE, NS TKO. BED IN LOWEST POSITION, CALL LIGHT WITHIN REACH, SIDE RAILS UP X3. WILL CONTINUE TO MONITOR PT. FOR ANY CHANGES.
[2022-11-19] MEDS: TAMSULOSIN 0.4 MG CAP.SR.24H PO SCH (21:00)
[2022-11-19] MEDS: ATORVASTATIN 40 MG TABLET PO SCH (21:01)
[2022-11-19] MEDS: CEFTRIAXONE 1 G in IV D5W 50 ML IV SCH (21:02)
--- NOTE | 2022-11-19 21:20 | NUR ---
jewel corner brushing machine operator notes RT at bedside ,Pts placed on Bipap at 21:20 on ordered settings of 15/5 rate of 18, Fio2 30%. Pt tolerating settings.
--- NOTE | 2022-11-20 01:51 | NUR ---
Pt recvd start of shift on room air, spo2 92%. declined bipap til after midnight. RN was made aware. Bipap initiated at 00:55. RN aware. Bipap is plugged into red outlet with alarms on and audible. Addendum: 11/20/22 at 0154 by ROVERTO AVLAREZ RT Disregard wrong Patient chart.
--- NOTE | 2022-11-20 01:55 | NUR ---
RT - Pt recvd on 2 lpm NC, no SOB or respiratory distress noted. neb tx given and samuel well. Placed pt on bipap at 21:20. bipap is plugged into red outlet with alarms on and audible. RN aware
[2022-11-20] MEDS: ALBUTEROL FS 2.5 MG/3 ML VIAL.NEB IH SCH ×4 (02:19→19:40)
[2022-11-20] MEDS: IPRATROPIUM NEB FS 0.5 MG/2.5 ML AMPUL.NEB NEB SCH ×4 (02:19→19:40)
[2022-11-20 04:00] VITALS: BP 104/66
--- NOTE | 2022-11-20 04:00 | NUR ---
telephone switchboard operator notes Pt off bipap place on 2 lpm NC, no SOB or respiratory distress noted.,
[2022-11-20] MEDS: ACETAMINOPHEN 325 MG TABLET PO PRN ×2 (04:51→23:39)
[2022-11-20 06:35] LABS: BASOPHILS # (AUTO) 0.1 K/uL (0.0-0.2); BASOPHILS % (AUTO) 0.5 % (0.0-2.0); EOSINOPHILS % (AUTO) 2.6 % (0.0-6.0); HEMATOCRIT 33 % (39-51); HEMOGLOBIN 9.6 g/dL (13.5-17.5); LYMPHOCYTES # (AUTO) 0.6 K/uL (0.8-4.8); LYMPHOCYTES % (AUTO) 4.8 % (20.0-44.0); MEAN CORPUSCULAR HGB CONC 29 g/dl (31.0-36.0); MEAN CORPUSCULAR VOLUME 66 fL (80-96); MONOCYTES % (AUTO) 7.5 % (2.0-12.0); NEUTROPHILS # (AUTO) 11.2 K/uL (1.8-8.9); NEUTROPHILS % (AUTO) 84.6 % (43.0-81.0); PLATELET COUNT (AUTO) 187 K/uL (150-450); RED BLOOD CELL COUNT(AUTO) 4.96 MIL/uL (4.5-6.0); WHITE BLOOD COUNT (AUTO) 13.2 K/uL (4.3-11.0)
--- NOTE | 2022-11-20 06:43 | NUR ---
manager telemetry notes Pts remain on nc at 2litersmof o2VIA NC sating 100% no sob no distress noted . will endorse to rn morning shift for continuity of care.
[2022-11-20 07:35] LABS: CALCIUM, SERUM 7.7 mg/dL (8.5-10.1); CARBON DIOXIDE 33 mmol/L (21-32); CHLORIDE 105 mmol/L (98-107); CREATININE 0.5 mg/dL (0.6-1.3); GLUCOSE 109 mg/dL (74-106); POTASSIUM 4.3 mmol/L (3.5-5.1); SODIUM SERUM 141 mmol/L (136-145); UREA NITROGEN, BLOOD 12 mg/dL (7-18)
--- NOTE | 2022-11-20 07:37 | NUR ---
OPENING NOTE PATIENT IS IN BED RESTING COMFORTABLY, AWAKE,ALERT, ORIENTEDX3, NO COMPLAINT OF PAIN, NO SIIGN OF IN DISTRESS, UNLABORED BREATHING, O2-2L/MIN VIA N/C DURING THE DAY, BIPAP AT NIGHT, SIDE RAILS UP, BED IN LOW POSITION, CALL LIGHT WITHIN REACH.
[2022-11-20] MEDS: ENSURE ENLIVE CHOC 237 ML CAN PO SCH ×2 (07:58→16:26)
[2022-11-20] MEDS: ASPIRIN EC 81 MG TABLET.DR PO SCH (07:58)
[2022-11-20] MEDS: CLOPIDOGREL BISULFATE 75 MG TABLET PO SCH (07:59)
[2022-11-20] MEDS: ENOXAPARIN SODIUM 40 MG/0.4 ML DISP.SYRIN SQ SCH (08:01)
[2022-11-20] MEDS: OFLOXACIN 0.3% OPHTH 5 ML BOTTLE LEFTEYE SCH ×4 (08:05→21:07)
[2022-11-20] MEDS: LISINOPRIL (20MG) 20 MG TABLET PO SCH ×2 (08:05→16:27)
[2022-11-20 16:00] VITALS: BP 119/65
[2022-11-20] MEDS: IV NS 0.9% 250 ML IV PRN (18:20)
--- NOTE | 2022-11-20 18:35 | NUR ---
CLOSING NOTE PATIENT IS AWAKE,ALERT, ORIENTEDX3, NO SIGNS OF IN DISTRESS,NO COMPLAINT OF PAIN, BREATHING EVENLY ON 2L/MIN ON O2, VITAL SIGNS ARE STABLE, BED IN LOW POSITION,SIDE RAILS UP, CALL LIGHT WITHIN REACH
--- NOTE | 2022-11-20 19:33 | NUR ---
MS RN OPENING NOTE RECEIVED PT AWAKE IN BED. A/O X3 AND ABLE TO MAKE NEEDS KNOWN. PT ON O2 @ 2LPM VIA NC, TOLERATING WELL. NO SOB OR S/S OF RESPIRATORY DISTRESS. BREATHING EVEN AND UNLABORED. IV ACCESS LFA 20G SL, INTACT AND PATENT. WITH SILVERMAN CATHETER DRAINING URINE BY GRAVITY. SAFETY PRECAUTIONS IN PLACE. BED IN LOWEST LOCKED POSITION, HOB ELEVATED, SIDE RAILS UP X3, AND CALL LIGHT AND TABLE WITHIN REACH. ALL NEEDS MET AT THIS TIME.
[2022-11-20 20:00] VITALS: BP 117/59
[2022-11-20] MEDS: ATORVASTATIN 40 MG TABLET PO SCH (21:07)
[2022-11-20] MEDS: CEFTRIAXONE 1 G in IV D5W 50 ML IV SCH (21:07)
[2022-11-20] MEDS: TAMSULOSIN 0.4 MG CAP.SR.24H PO SCH (21:07)
[2022-11-20 21:32] LABS: EOSINOPHILS % (MANUAL) 1 % (0-4); LYMPHOCYTES % (MANUAL) 9 % (16-48); MONOCYTES % (MANUAL) 2 % (0-11.0); NEUTROPHILS % (MANUAL) 88 (42-76)
--- NOTE | 2022-11-20 23:39 | NUR ---
RN NOTE PT REQUESTED TYLENOL FOR MILD HEADACHE 01/14. ADMINISTERED TYLENOL 650 MG FOR MILD PAIN ORDERED. MADE COMFORTABLE IN BED. ALL NEEDS MET AT THIS TIME.
[2022-11-21] VITALS: BP 120/58
[2022-11-21] MEDS: ALBUTEROL FS 2.5 MG/3 ML VIAL.NEB IH SCH ×4 (01:26→19:53)
[2022-11-21] MEDS: IPRATROPIUM NEB FS 0.5 MG/2.5 ML AMPUL.NEB NEB SCH ×4 (01:26→19:53)
[2022-11-21 06:18] LABS: BASOPHILS % (AUTO) 0.2 % (0.0-2.0); EOSINOPHILS % (AUTO) 1.8 % (0.0-6.0); HEMATOCRIT 31 % (39-51); HEMOGLOBIN 9.4 g/dL (13.5-17.5); LYMPHOCYTES # (AUTO) 0.8 K/uL (0.8-4.8); LYMPHOCYTES % (AUTO) 5.9 % (20.0-44.0); MEAN CORPUSCULAR HGB CONC 30 g/dl (31.0-36.0); MEAN CORPUSCULAR VOLUME 67 fL (80-96); MONOCYTES # (AUTO) 1.2 K/uL (0.1-1.30); MONOCYTES % (AUTO) 8.6 % (2.0-12.0); NEUTROPHILS # (AUTO) 11.2 K/uL (1.8-8.9); NEUTROPHILS % (AUTO) 83.5 % (43.0-81.0); PLATELET COUNT (AUTO) 151 K/uL (150-450); WHITE BLOOD COUNT (AUTO) 13.4 K/uL (4.3-11.0)
--- NOTE | 2022-11-21 06:34 | NUR ---
MS RN CLOSING NOTE PT AWAKE IN BED. A/O X3 AND ABLE TO MAKE NEEDS KNOWN. PT ON O2 @ 2LPM VIA NC, TOLERATING WELL. NO SOB OR S/S OF RESPIRATORY DISTRESS. BREATHING EVEN AND UNLABORED. IV ACCESS LFA 20G SL, INTACT AND PATENT. WITH SILVERMAN CATHETER DRAINING URINE BY GRAVITY, DRAINED 600 ML THIS SHIFT. NO COMPLAINTS OF PAIN OR DISCOMFORT AT THIS TIME. ALL DUE MEDS GIVEN ORDERED. KEPT CLEAN AND DRY. SAFETY PRECAUTIONS IN PLACE AT ALL TIMES. BED IN LOWEST LOCKED POSITION, HOB ELEVATED, SIDE RAILS UP X3, AND CALL LIGHT AND TABLE WITHIN REACH. ALL NEEDS MET AT THIS TIME AND WILL ENDORSE TO ONCOMING NURSE FOR MONTY.
[2022-11-21 06:41] LABS: CALCIUM, SERUM 7.9 mg/dL (8.5-10.1); CARBON DIOXIDE 29 mmol/L (21-32); CHLORIDE 104 mmol/L (98-107); CREATININE 0.5 mg/dL (0.6-1.3); GLUCOSE 128 mg/dL (74-106); POTASSIUM 4.2 mmol/L (3.5-5.1); SODIUM SERUM 138 mmol/L (136-145); UREA NITROGEN, BLOOD 13 mg/dL (7-18)
[2022-11-21 08:00] VITALS: BP 110/62
[2022-11-21] MEDS: CLOPIDOGREL BISULFATE 75 MG TABLET PO SCH (08:00)
[2022-11-21] MEDS: ASPIRIN EC 81 MG TABLET.DR PO SCH (08:00)
[2022-11-21] MEDS: ENOXAPARIN SODIUM 40 MG/0.4 ML DISP.SYRIN SQ SCH (08:02)
[2022-11-21] MEDS: ENSURE ENLIVE CHOC 237 ML CAN PO SCH ×2 (08:07→16:06)
[2022-11-21] MEDS: LISINOPRIL (20MG) 20 MG TABLET PO SCH ×2 (08:08→16:06)
[2022-11-21] MEDS: OFLOXACIN 0.3% OPHTH 5 ML BOTTLE LEFTEYE SCH ×4 (08:08→22:07)
[2022-11-21 11:46] LABS: EOSINOPHILS % (MANUAL) 3 % (0-4); LYMPHOCYTES % (MANUAL) 5 % (16-48); MONOCYTES % (MANUAL) 6 % (0-11.0); NEUTROPHILS % (MANUAL) 86 (42-76)
[2022-11-21 16:00] VITALS: BP 123/69
--- NOTE | 2022-11-21 18:13 | NUR ---
CLOSING NOTE PATIENT IS AWAKE,ALERT, ORIENTEDX3, NO SIGNS OF IN DISTRESS,NO COMPLAINT OF PAIN, BREATHING EVENLY ON 2L/MIN ON O2,SILVERMAN CATHETER IN PLACE AND DRAINING WELL, VITAL SIGNS ARE STABLE, BED IN LOW POSITION,SIDE RAILS UP, CALL LIGHT WITHIN REACH
[2022-11-21 20:00] VITALS: BP 116/70
--- NOTE | 2022-11-21 20:00 | NUR ---
RN OPENING NOTES RECEIVED PT IN BED, AWAKE. AOx3. ON NC 2LPM AND TOLERATING WELL. NO SOB NOTED. NO S/SX OF RESPIRATORY DISTRESS NOTED. IV ACCESS IN LFA #20G. IV IS INTACT, PATENT, AND FLUSHING WELL. SAFETY PRECAUTIONS IN PLACE: BED IN LOWEST, LOCKED POSITION, SIDERAILS UPx2, AND BRAKES ON. TABLE AND CALL LIGHT WITHIN REACH. ALL NEEDS MET AT THIS TIME.
[2022-11-21] MEDS: ATORVASTATIN 40 MG TABLET PO SCH (22:07)
[2022-11-21] MEDS: TAMSULOSIN 0.4 MG CAP.SR.24H PO SCH (22:07)
[2022-11-21] MEDS: CEFTRIAXONE 1 G in IV D5W 50 ML IV SCH (22:07)
--- NOTE | 2022-11-21 23:43 | NUR ---
Pt placed on BiPAP with ordered settings. Appears to tolerate for only a few hours. Requested to remove at 2-3am due to headaches. RN notified.
[2022-11-22] MEDS: IPRATROPIUM NEB FS 0.5 MG/2.5 ML AMPUL.NEB NEB SCH ×3 (01:40→13:36)
[2022-11-22] MEDS: ALBUTEROL FS 2.5 MG/3 ML VIAL.NEB IH SCH ×3 (01:40→13:36)
[2022-11-22] MEDS: ACETAMINOPHEN 325 MG TABLET PO PRN (01:56)
--- NOTE | 2022-11-22 02:00 | NUR ---
Removed pt from BiPAP per pt request. States it is giving him headaches. No resp distress or SOB. Placed on 2L NC, SPO2 94%. RN aware.
[2022-11-22 04:00] VITALS: BP 103/59
[2022-11-22 06:29] LABS: BASOPHILS % (AUTO) 0.2 % (0.0-2.0); EOSINOPHILS % (AUTO) 3.1 % (0.0-6.0); HEMATOCRIT 30 % (39-51); HEMOGLOBIN 9.2 g/dL (13.5-17.5); LYMPHOCYTES # (AUTO) 0.7 K/uL (0.8-4.8); LYMPHOCYTES % (AUTO) 7.2 % (20.0-44.0); MEAN CORPUSCULAR HGB CONC 31 g/dl (31.0-36.0); MEAN CORPUSCULAR VOLUME 67 fL (80-96); MONOCYTES # (AUTO) 1.1 K/uL (0.1-1.30); MONOCYTES % (AUTO) 10.7 % (2.0-12.0); NEUTROPHILS # (AUTO) 7.8 K/uL (1.8-8.9); NEUTROPHILS % (AUTO) 78.8 % (43.0-81.0); PLATELET COUNT (AUTO) 134 K/uL (150-450); RED BLOOD CELL COUNT(AUTO) 4.49 MIL/uL (4.5-6.0); WHITE BLOOD COUNT (AUTO) 9.9 K/uL (4.3-11.0)
--- NOTE | 2022-11-22 06:35 | NUR ---
RN OPENING NOTES PT IN BED, AWAKE,WATCHING TV. AOx4. ON NC 2LPM AND TOLERATING WELL. NO SOB NOTED. NO S/SX OF RESPIRATORY DISTRESS NOTED. IV ACCESS IN LFA #20G. IV IS INTACT, PATENT, AND FLUSHING WELL. ALL ORDERS CARRIED OUT. ALL NEEDS MET. PT KEPT CLEAN AND DRY. SAFETY PRECAUTIONS IN PLACE: BED IN LOWEST, LOCKED POSITION, SIDERAILS UPx2, AND BRAKES ON. TABLE AND CALL LIGHT WITHIN REACH. WILL ENDORSE TO ONCOMING SHIFT FOR MONTY.
--- NOTE | 2022-11-22 07:00 | NUR ---
MS RN OPENING NOTES: RECEIVED PT IN BED ASLEEP, EASILY AROUSED WITH STIMULI. PT A/O X 3. NO SOB OR CARDIAC DISTRESS NOTED, DENIES PAIN AT THIS TIME. IV ACCESS ON LFA GAUGE 20 PATENT, INTACT AND SALINE LOCKED. SAFETY MEASURES MAINTAINED: BED LOCKED AND IN LOWEST POSITION, SIDE RAILS UP X 2 CALL LIGHT IN EASY REACH FOR HELP. WILL MONITOR PT ACCORDINGLY.
[2022-11-22 07:37] LABS: CALCIUM, SERUM 7.6 mg/dL (8.5-10.1); CARBON DIOXIDE 30 mmol/L (21-32); CHLORIDE 106 mmol/L (98-107); CREATININE 0.5 mg/dL (0.6-1.3); GLUCOSE 114 mg/dL (74-106); PHOSPHORUS 3.2 mg/dL (2.5-4.9); POTASSIUM 4.1 mmol/L (3.5-5.1); SODIUM SERUM 140 mmol/L (136-145); UREA NITROGEN, BLOOD 10 mg/dL (7-18)
[2022-11-22 08:00] VITALS: BP 112/72
[2022-11-22] MEDS: ENSURE ENLIVE CHOC 237 ML CAN PO SCH ×2 (08:01→16:55)
[2022-11-22] MEDS: ASPIRIN EC 81 MG TABLET.DR PO SCH (08:51)
[2022-11-22] MEDS: CLOPIDOGREL BISULFATE 75 MG TABLET PO SCH (08:51)
[2022-11-22] MEDS: LISINOPRIL (20MG) 20 MG TABLET PO SCH ×2 (08:51→16:36)
[2022-11-22] MEDS: ENOXAPARIN SODIUM 40 MG/0.4 ML DISP.SYRIN SQ SCH (08:53)
[2022-11-22] MEDS: OFLOXACIN 0.3% OPHTH 5 ML BOTTLE LEFTEYE SCH ×3 (09:06→16:40)
[2022-11-22 16:00] VITALS: BP 118/81
[2022-11-22 16:36] VITALS: BP 118/81
--- NOTE | 2022-11-22 17:21 | NUR ---
DISCHARGE NOTES: PT DC TO [facility].REPORT GIVEN TO RAYMOND ZAMUDIO. PT A/O X 3-4 WITH EPISODES OF FORGETFULNESS NEEDS FREQUENT REORIENTATION. NO SOB OR CARDIAC DISTRESS NOTED. DENIES PAIN AT THIS TIME. DISCHARGE PACKET GIVEN TO EMT. PER ELECTRIC LOCOMOTIVE CRANE OPERATOR WILBERTO MORALES ORDERED TO DC BIPAP. INFORMED RAYMOND ZAMUDIO. ALL BELONGINGS CARRIED WITH THE RESIDENT. IV ACCESS REMOVED. IDENTIFICATION BAND IN PLACE. PT LEFT THE UNIT STABLE.
[2022-11-22 22:22] LABS: EOSINOPHILS % (MANUAL) 4 % (0-4); LYMPHOCYTES % (MANUAL) 10 % (16-48); MONOCYTES % (MANUAL) 4 % (0-11.0); NEUTROPHILS % (MANUAL) 82 (42-76)
== END 2022-11-22 17:21 | DRG 177 ==
LOC: EDBD 16:12 → ER 16:12 → TELE-TD 21:19 → ICU 11-03 03:39 → TELE-TD 11-16 15:10 → TELE1 11-17 08:06 → MEDSG1 11-19 09:32
PROVIDERS: ADMIT Registered Nurse; ATTEND Internal Medicine
PROC: 5A09557 Assistance with Respiratory Ventilation, Greater than 96 Consecutive Hours, Continuous Positive Airway Pressure (ICD-10-PCS; principal; 2022-11-03)
PROC: 0W993ZZ Drainage of Right Pleural Cavity, Percutaneous Approach (ICD-10-PCS; 2022-11-04)
PROC: 0W993ZZ Drainage of Right Pleural Cavity, Percutaneous Approach (ICD-10-PCS; 2022-11-12)
DX: J15.6 Pneumonia due to other Gram-negative bacteria (principal); E43 Unspecified severe protein-calorie malnutrition; I50.33 Acute on chronic diastolic (congestive) heart failure; J96.22 Acute and chronic respiratory failure with hypercapnia; J96.21 Acute and chronic respiratory failure with hypoxia; G93.41 Metabolic encephalopathy; M62.82 Rhabdomyolysis; J90 Pleural effusion, not elsewhere classified; J44.1 Chronic obstructive pulmonary disease with (acute) exacerbation; J44.0 Chronic obstructive pulmonary disease with (acute) lower respiratory infection; E87.3 Alkalosis; E87.0 Hyperosmolality and hypernatremia; J98.11 Atelectasis; Z20.822 Contact with and (suspected) exposure to COVID-19; Z79.02 Long term (current) use of antithrombotics/antiplatelets; Z79.82 Long term (current) use of aspirin; Z79.51 Long term (current) use of inhaled steroids; Z79.899 Other long term (current) drug therapy; D72.829 Elevated white blood cell count, unspecified; D63.8 Anemia in other chronic diseases classified elsewhere; D56.9 Thalassemia, unspecified; E78.5 Hyperlipidemia, unspecified; Z68.29 Body mass index [BMI] 29.0-29.9, adult; E66.9 Obesity, unspecified; Z91.14 Patient's other noncompliance with medication regimen; T50.1X5A Adverse effect of loop [high-ceiling] diuretics, initial encounter; Y92.239 Unspecified place in hospital as the place of occurrence of the external cause; Z78.1 Physical restraint status; E88.09 Other disorders of plasma-protein metabolism, not elsewhere classified
CPT/HCPCS: 36415; 36600; 71045-TC; 71250-TC; 80048-TC; 80053-TC; 80076-TC; 81001; 82550-TC; 82553; 82728-TC; 82803-TC; 83540-TC; 83735-TC; 83880; 84100-TC; 84439-TC; 84443-TC; 84484-TC; 85025-TC; 85730-TC; 87081-TC; 87102-TC; 88108-TC; 88305-TC; 88312-TC; 89051-TC; 93307-TC; 94660; 94760-TC; 94762-TC; 94799-TC; 97110-TC; 97112-TC; 97116-TC; 97530-TC; C9803; G0378; J0456; J0696; J1650; J1940; J2916; J2930; J3480; J7030; J7050; J7060